=== PATIENT | female | born 1995 | race Caucasian/White ===

== ENCOUNTER 2020-09-23 11:33 | Outpatient (REF) | payer OTHER, SELFPAY ==
[2020-09-23 11:55] LABS: IDNOW Serial# 55D5AD1C
[2020-09-23 11:56] LABS: COVID-19 Test Negative (Negative)
== END 2020-09-23 11:34 | disposition home or self-care (01) ==
LOC: HO.LAB 11:33
PROVIDERS: Visit Provider Internal Medicine
DX: Z20.828 Contact with and (suspected) exposure to other viral communicable diseases (principal)
CPT/HCPCS: 87635; C9803

== ENCOUNTER 2020-11-17 07:22 | Outpatient (REF) | payer OTHER, SELFPAY ==
[2020-11-17 07:57] LABS: COVID-19 Test Negative (Negative)
== END 2020-11-17 07:23 | disposition home or self-care (01) ==
LOC: HO.EMPCOV 07:22
PROVIDERS: Visit Provider Internal Medicine
DX: Z20.822 Contact with and (suspected) exposure to COVID-19 (principal)
CPT/HCPCS: 36415; 87635; C9803

== ENCOUNTER 2020-11-28 13:57 | Outpatient (REF) | payer OTHER, SELFPAY ==
[2020-11-28 14:15] LABS: COVID-19 Test Negative (Negative)
== END 2020-11-28 13:58 | disposition home or self-care (01) ==
LOC: HO.EMPCOV 13:57
PROVIDERS: Visit Provider Internal Medicine
DX: Z20.822 Contact with and (suspected) exposure to COVID-19 (principal)
CPT/HCPCS: 36415; 87635; C9803

== ENCOUNTER 2020-12-15 12:57 | Outpatient (REF) | payer OTHER, SELFPAY ==
[2020-12-15 13:16] LABS: COVID-19 Test Negative (Negative)
== END 2020-12-15 12:58 | disposition home or self-care (01) ==
LOC: HO.EMPCOV 12:57
PROVIDERS: Visit Provider Internal Medicine
DX: Z20.822 Contact with and (suspected) exposure to COVID-19 (principal)
CPT/HCPCS: 36415; 87635; C9803

== ENCOUNTER 2021-01-20 16:06 | Outpatient (REF) | payer OTHER, SELFPAY ==
[2021-01-20 17:04] LABS: Rheumatoid Factor < 15.0 IU/mL (<15.0)
[2021-01-21 09:21] LABS: Lyme Abs Screen <0.90 index
[2021-01-21 20:57] LABS: Anti Nuclear Antibody Screen NEGATIVE (NEGATIVE)
[2021-01-22 04:31] LABS: Cyclic Citrullinated Peptide <16 UNITS
[2021-01-22 13:16] LABS: SM/Ribonucleoprotein Ab <1.0 NEG AI (<1.0 NEG); Smith Protein <1.0 NEG AI (<1.0 NEG)
[2021-01-23 13:12] LABS: A. Phagocytophilum Ab IgG <1:64 (<1:64); A. Phagocytophilum Ab IgM <1:20 (<1:20); E. Chaffeensis Ab IgG <1:64 (<1:64); E. Chaffeensis Ab IgM <1:20 (<1:20)
[2021-01-27 06:26] LABS: Babesia IgG <1:64 titer (<1:64); Babesia IgM <1:20 titer (<1:20)
== END 2021-01-20 16:07 | disposition home or self-care (01) ==
LOC: HO.LAB 16:06
PROVIDERS: PCP Internal Medicine; Visit Provider Naturopath
DX: M25.541 Pain in joints of right hand (principal); M25.529 Pain in unspecified elbow; M25.519 Pain in unspecified shoulder; R53.83 Other fatigue
CPT/HCPCS: 36415; 86038; 86039; 86200; 86235; 86431; 86611; 86618; 86666; 86753

== ENCOUNTER 2021-02-13 09:25 | Outpatient (REF) | payer OTHER, SELFPAY ==
[2021-02-13 14:13] LABS: CT PCR NOT DETECTED (Not Detect.); NG PCR NOT DETECTED (Not Detect.)
[2021-02-14 15:15] LABS: BV Int Neg Control Negative (Negative); BV Int Pos Control Positive (Positive)
== END 2021-02-13 09:26 | disposition home or self-care (01) ==
LOC: HO.LAB 09:25
PROVIDERS: PCP Internal Medicine; Visit Provider Obstetrics & Gynecology
DX: Z12.4 Encounter for screening for malignant neoplasm of cervix (principal); N93.0 Postcoital and contact bleeding; Z11.3 Encounter for screening for infections with a predominantly sexual mode of transmission; Z88.1 Allergy status to other antibiotic agents
CPT/HCPCS: 87480; 87491; 87510; 87591; 87660; 88142

== ENCOUNTER 2021-03-26 16:00 | Outpatient (RCR) | payer OTHER, SELFPAY ==
--- NOTE | 2021-02-03 18:37 | MHC.PT.EP ---
[facility] [place] Office [place] Office [place] Office [address] Cori Velázquez [address] [phone] F: [phone] F: [phone] F: [phone] F: [phone] Physical Therapy Plan of Care Date of Evaluation: 02/03/21 Date of Surgery: N/A Diagnosis: B shoulder and elbow pain per script M25.511 pain in right shoulder Assessment: pt initially seemed as though they were experiencing RTC tendinitis; however, had no pain w/ resisted rotator cuff strengthening. Bursitis was also considered; however, pt does not presents w/ redness, warmth, or swelling of the affected joints. pt also does not present with significant stiffness of the shoulders or elbows with passive range. Bilateral nature of symptoms and isolated joint pain makes it unlikely to be cervical radiculopathy. pt presents to physical therapy with pain, decreased range of motion, decreased strength, and impaired postural awareness. pt is a good candidate for skilled PT due to age, potential remediation of impairments, typical disease/condition progression and prognosis, comorbidities, and motivation. pt would benefit from tailored strengthening and stretching exercise program, functional training, gait training, postural re-training, neuromuscular re-education, modalities as needed for pain, equipment safety demonstration. Frequency and Duration: The patient will be seen 2x/wk for 4 wks Short Term Goals: pt will be I w/ HEP to promote self-management of condition. pt will improve B shoulder flexion by 15 degrees to promote ease in reaching for objects on higher shelves. 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 pt will report <1/10 B shoulder pain w/ donning/doffing upper body clothing to promote pain-free return to ADLs. Treatment Plan: Modalities to reduce pain, spasms and effusion. Manual therapy to restore motion and function. Therapeutic exercise to improve strength and flexibility. Neuromuscular re-education for posture and balance. Therapeutic activities to return to functional activities of daily living. Electronically signed by: Francesca Acharya PT, DPT Please sign and return to therapist. Thank you for your referral.
--- NOTE | 2021-04-17 09:30 | MHC.PT.DC ---
[facility] [place] Office [place] Office [place] Office [address] Eduardo Velázquez [address] [phone] F: [phone] F: [phone] F: [phone] F: [phone] Physical Therapy Discharge Report Diagnosis: B shoulder and elbow pain per script M25.511 pain in right shoulder Date of Surgery: N/A Date of Evaluation: 02/03/21 Date of Discharge: 04/17/21 Treatments to Date: 12 Cancellations to Date: 1 No Shows to Date: 0 Discharge Status: Improved Function Independent with HEP Discharge Summary: pt reported fatigue and DOMS after last visit but no increase in pain. pt was able to progress to lower angle push-ups w/ no increased pain. pt able to progress to overhead lifting w/ no increase in pain. Will put pt on hold for 3 weeks. If pt has flare up of shoulder pain w/ return to gym program they will return to continue w/ PT at that time. Otherwise, pt's chart will be D/C'd in 3 weeks time. pt I w/ HEP. pt educated regarding importance of strengthening to promote muscle balance across joints. pt also educated on how to modify ex's at the gym including ensuring they are using proper posture or modifying resistance, reps, or range of motion. Electronically signed by: Francesca Acharya PT, DPT Please sign and return to therapist. Thank you for your referral.
== END 2021-04-17 09:31 | disposition other institution (70) ==
LOC: HO.PT 16:00
PROVIDERS: Visit Provider Internal Medicine
DX: M25.511 Pain in right shoulder (principal)
CPT/HCPCS: 97110; 97112; 97140; 97162

== ENCOUNTER 2021-04-14 09:12 | Outpatient (REF) | payer OTHER, SELFPAY ==
[2021-04-14 18:39] LABS: MANUAL DIFF FLAG NO
[2021-04-14 19:05] LABS: Basophils Absolute Auto 0.1 X10*3/uL (0.0-0.2); Basophils Percent Auto 1.4 % (0-2); Eosinophils Absolute Auto 0.2 X10*3/uL (0.0-0.4); Eosinophils Percent Auto 2.3 % (0-4); Hematocrit 38.1 % (37-47); Hemoglobin 12.4 g/dl (12.0-16.0); Imm Gran Abs Auto 0.02 X10*3/uL (0.00-0.03); Imm Gran Pct Auto 0.3 % (0.0-0.4); Lymphocytes Absolute Auto 2.2 X10*3/uL (1.2-4.9); Lymphocytes Percent Auto 28.1 % (20-40); Mean Corpuscular HGB Conc 32.5 g/dl (31.0-35.0); Mean Corpuscular Hemoglobin 30.9 pg (27.0-33.0); Mean Platelet Volume 11.9 fL (9.4-12.3); Monocytes Absolute Auto 0.6 X10*3/uL (0.1-1.2); Monocytes Percent Auto 8.1 % (2-11); Neutrophils Absolute Auto 4.7 X10*3/uL (2.0-8.3); Neutrophils Percent Auto 59.8 % (45-73); Platelet Count 180 X10*3/uL (160-400); Red Blood Count 4.01 X10*6/uL (4.20-5.50); Red Cell Distribution Width 12.3 % (11.0-16.0); White Blood Count 7.9 X10*3/uL (4.8-10.8)
[2021-04-14 19:06] LABS: Alanine Aminotransferase 21 U/L (0-31); Albumin Level 4.7 g/dL (3.5-5.0); Alkaline Phosphatase 135 U/L (39-117); Anion Gap 12 (12-20); Aspartate Amino Transferase 23 U/L (5-31); Bilirubin Total 0.4 mg/dL (0.0-1.0); Blood Urea Nitrogen 12 mg/dL (9-16); C Reactive Protein < 0.02 mg/dL (< or = 0.50); Calcium 9.3 mg/dL (8.4-10.2); Carbon Dioxide 27 mmol/L (22-29); Chloride 107 mmol/L (96-108); Estimated Glomerular Filt Rate > 60; Glucose Random 75 mg/dL (60-115); Potassium 3.8 mmol/L (3.3-5.1); Sodium 142 mmol/L (135-145); Total Protein 7.8 g/dL (6.5-8.0)
[2021-04-14 19:32] LABS: Erythrocyte Sedimentation Rate 7 MM/HR (0-20)
[2021-04-16 13:06] LABS: Antibody to SS-A Antigen <1.0 NEG AI (<1.0 NEG); Antibody to SS-B Antigen <1.0 NEG AI (<1.0 NEG)
== END 2021-04-14 09:13 | disposition home or self-care (01) ==
LOC: HO.LAB 09:12
PROVIDERS: PCP Internal Medicine; Visit Provider Student in an Organized Health Care Education/Training Program
DX: M25.50 Pain in unspecified joint (principal); I73.00 Raynaud's syndrome without gangrene; M77.11 Lateral epicondylitis, right elbow; M77.12 Lateral epicondylitis, left elbow
CPT/HCPCS: 36415; 80053; 85025; 85652; 86140; 86235

== ENCOUNTER → 2021-05-12 11:19 | Outpatient (BNVA) | payer OTHER, SELFPAY | PROVIDERS: PCP Internal Medicine; Visit Provider Student in an Organized Health Care Education/Training Program ==

== ENCOUNTER 2021-05-21 07:30 | Outpatient (RCR) | payer OTHER, SELFPAY ==
--- NOTE | 2021-04-30 11:56 | MHC.OT.OEV ---
[address] [phone] F: [phone] Occupational Therapy Evaluation Diagnosis: PAIN IN RIGHT ELBOW Date of Onset: 12/08/20 Attending Provider: Adrienne Cisneros Prescribed Treatment: EVAL AND TREAT History of Current Condition: REPORTS ABOUT A FOUR MONTH HISTORY OF LEFT > RIGHT ELBOW PAIN. PAIN GREATEST IN THE MORNING UPON WAKING AND IMPROVES THROUGHOUT THE DAY. BELIEVES ATTRIBUTED TO TURNING AND PULLING [facility] H[facility] DOORS AT WORK. 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 HOBBIES: EXERCING AT GYM 3-4X/WEEK LIFTING WEIGHT, ROCK CLIMBING Living Situation, Family and/or Social Support: LIVES ALONE, A CAT Current Level of Function and Occupation Self Care, Employment, Leisure: GRIPPING TASKS, GRASPING WATER BOTTLE, LIFTING WEIGHTS/ ROCK CLIMBING. UNABLE TO LIFT >5 POUNDS WITHOUT PAIN. Sleep: PAIN GREATEST IN MORNING, WAKES WHEN TURNING ON LEFT SIDE Driving: NO DIFFICULTIES Pain Assessment Pain Score: 1-7/10 Pain Scale Used: Numeric (0 - 10) Pain Location and Description: LEFT ELBOW MORE OFTEN THAN RIGHT ELBOW POSTERIOR ELBOW PAIN SHARP STABBING PAIN TO AN ACHY PAIN Aggravating Factors: LIFTING WEIGHTS, TURNING DOOR KNOBS, LIFTING HEAVY ITEMS Alleviating Factors: HAS TRIED ICE, CFB USE; HAS NOT USED MEDICATION RECENTLY PURCHASED VOLTAREN GEL, YET HAS NOT USED YET DUE TO CONCERNS WITH SIDE-EFFECTS Skin and Soft Tissue Assessment Skin and Soft Tissue: Swelling Comments: MILD POSTERIOR ELBOW EDEMA B/L; HYPERMOBILE AT JOINTS Sensory Assessment Temperature: Light Touch: WFL Proprioception: Vibration: Comments: Edema Assessment Upper Extremity: WNL Lower Extremity: Comments: CIRCUMFERENCE 20 CM PROXIMAL TO U.S. LEFT: 23.2 CM, RIGHT: 22.9 CM Dexterity Assessment Dexterity: WFL Comments: Special Tests Comments: AROM(PROM) Strength Shoulder Flexion: Extension: Abduction: Internal Rotation: External Rotation: Comments: RECENTLY CONCLUDED PT FOR B/L SHOULDER PAIN Flexion: Extension: Abduction: Internal Rotation: External Rotation: Comments: Elbow Flexion: L 0, R 0 Extension: L 150, R 145 Pronation: L 90, R 90 Supination: L 90, R 90 Comments: Flexion: Extension: Pronation: Supination: Comments: Wrist Flexion: L 85 Extension: Ulnar Deviation: Radial Deviation: Comments: HYPERMOBILE IN WRIST FLEX/EXT Flexion: Extension: Ulnar Deviation: Radial Deviation: Comments: Digits Index MCP: PIP: DIP: Long MCP: PIP: DIP: Ring MCP: PIP: DIP: Small MCP: PIP: DIP: Comments: Gross Grasp: L 34 POUNDS, R 42 POUNDS Lateral Pinch: L 8, R 9 Two-Point Pinch: L 7, LR 7 Three-Jaw Graham: L 9, R 10 Comments: DOES NOT REPORT INCREASED PAIN WITH GRIPPING DYNAMOMETER IN ELBOW EXTENSION Patient Education Primary Language: Gabonese 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 Patient demonstrates Patient verbalizes Barriers to Learning: None Readiness for Learning: Accepting Who was educated? Patient Comments: Plan of Care Assessment: CRISTY REPORTS ABOUT A FOUR MONTH HISTORY OF B/L ELBOW AND SHOULDER PAIN. Pt RECENTLY CONCLUDED ATTENDING PT FOR B/L SHOULDER PAIN AND IS BEING REFERRED TO OT FOR ELBOW PAIN. SHE RECENTLY PURCHASED B/L CFB WITH GOOD RELIEF. Pt IS REPORTING DIFFICULTIES WITH BEARING WEIGHT THROUGH ARMS, LIFTING WEIGHTS AND ROCK CLIMBING, WELL TURNING DOORS OR OPENING A TIGHT JAR. A 16% LIMITATION IS REPORTED PER THE QUICK DASH ASSESSMENT. CRISTY WOULD BENEFIT FROM ONGOING SKILLED OT TO ACHIEVE OPTIMAL FUNCTIONAL LEVEL AND IMPROVE QOL. STG Duration: 2 WEEK Short Term Goals: IND HEP IND HEAT/ ICE IND JOINT PROTECTION/ ACTIVITY MASSAGE REPORT <4/10 PAIN WITH LIGHT IADLs LTG Duration: 4 WEEKS Retirement Goals: COMPLETE 5 PUSH-UPS WITH REPORTS OF LOW PAIN QUICK DASH <8 % REPORT MINIMAL INTERRUPTION WITH SLEEPING WITH USING MODIFIED POSITIONS REPORT <2/10 PAIN WITH IADLs IND SELF TAPING TECHNIQUES (IE. KINESIOTAPE USE) Frequency and Duration: The patient will be seen 2X/WEEK FOR 5 WEEKS Treatment Plan: Therapeutic Exercise Therapeutic Activity Home Exercise Program Splinting Neuro Re-ed Patient Education Desensitization/Sensory Re-ed Edema Control ADL Training Ultrasound NMES Iontophoresis Paraffin Fluidotherapy MHP Cold Packs Joint Mobilization Soft Tissue Mobilization Kinesiotaping Electronically Signed By: RADHA LANDIN OTR/L Reviewed/agree with student documentation: Yes Therapist: Please sign and return to therapist, Thank you for your referral.
--- NOTE | 2021-06-18 10:17 | MHC.OT.DC ---
[address] [phone] F: [phone] Occupational Therapy Discharge Note Provider: Dr Cisneros Diagnosis: PAIN IN RIGHT ELBOW Date of Evaluation: 04/30/21 Date of Discharge: 06/18/21 Treatments to Date: 7 Discharge Status: Achieved Goals Improved Function Discharge Summary: Yakelin was seen in OT for triceps tendinopathy. She has done well and reported pain free able able to increase activity and initiate light exercises at the gym w/ minimal discomfort. Electronically Signed By: Ana Servin OTR/L Please Sign and return to therapist, thank you for your referral.
== END 2021-06-18 10:18 | disposition home or self-care (01) ==
LOC: HO.OT 07:30
PROVIDERS: Visit Provider Student in an Organized Health Care Education/Training Program
DX: M25.521 Pain in right elbow (principal)
CPT/HCPCS: 97033; 97035; 97110; 97140; 97166

== ENCOUNTER 2021-07-03 10:40 | Outpatient (REF) | payer OTHER, SELFPAY ==
[2021-07-04 11:02] LABS: BV Int Neg Control Negative (Negative); BV Int Pos Control Positive (Positive)
== END 2021-07-03 10:41 | disposition home or self-care (01) ==
LOC: HO.LAB 10:40
PROVIDERS: PCP Internal Medicine; Visit Provider Advanced Practice Midwife
DX: N89.8 Other specified noninflammatory disorders of vagina (principal)
CPT/HCPCS: 87480; 87510; 87660

== ENCOUNTER → 2021-09-15 14:50 | Outpatient (REF) | payer OTHER, SELFPAY ==
--- NOTE | 2021-09-15 14:53 | CA_ITS ---
Transthoracic Echocardiogram Patient (Last, First, Middle): Yakelin Solomon W Gender: Female Date of : 1995 Age: 26 Procedure Date: 09/15/2021 Procedure Type: Transthoracic Echocardiogram Location: OP Height: 160.02 cm Weight: 49.9 kg BSA: 1.50 m2 Heart Rate: bpm BP: 117 / 61 mmHg Sfdc Developer: DSBridget Referring MD: Vannesa Knight MD Symptoms: R01.1 - Cardiac murmur, unspecified Study Quality: Good ECG Rhythm: Sinus Conclusions: - The left ventricular systolic function is normal. The calculated ejection fraction is 65% by biplane method. - No obvious valvular pathology seen on this study. Findings Left Ventricle Normal left ventricular cavity size. There is normal left ventricular wall thickness. The left ventricular systolic function is normal. The calculated ejection fraction is 65% by biplane method. There is no evidence of regional wall motion abnormalities. Diastolic function is normal for age. LV peak GLS 21.6% (normal). Right Ventricle Normal right ventricular cavity size and systolic function. Atria Both atria are normal in size. Aortic Valve There is a normal trileaflet aortic valve. There is no aortic valve stenosis. There is no aortic valve regurgitation. Mitral Valve The mitral valve appears normal. There is no mitral valve regurgitation. There is no mitral valve stenosis. Pulmonic Valve The pulmonic valve was not well visualized. Tricuspid Valve Normal tricuspid valve structure. There is trace tricuspid valve regurgitation. The pulmonary artery systolic pressure is normal. Great Vessels The asc aorta is normal in size. Venous The inferior vena cava is normal in size and collapses greater than 50% with inspiration. Pericardium/Pleural There is no evidence of pericardial effusion. Prior Study Comparison No prior study available for comparison. Recommendations, Care & Conclusions No obvious valvular pathology seen on this study. Measurements M-Mode Liner Measurements Normals - Women/Men LVIDd: 4.09 3.9-5.3/4.2-5.9 cm LVIDd Index: 2.73 1.9-3.2 cm/m2 LVIDs: 2.86 2.0-3.8 cm LVPWd: 0.62 0.6-0.9/0.6-1.0 cm M-Mode Volumes LV EDV: 73.80 LV ESV: 31.10 2D Linear Measurements IVSd: 0.70 0.6-0.9/0.6-1.0 cm LVIDd: 4.08 3.9-5.3/4.2-5.9 cm LVIDd Index: 2.72 2.4-3.2/2.2-3.1 cm/m2 LVIDs: 2.96 2.0-3.6 cm LVPWd: 0.68 0.7-1.1 cm Ao Root: 2.30 2.1-3.5 cm LA Diam: 2.60 2.7-3.8/3.0-4.0 cm LAIDs Index: 1.73 1.5-2.3 cm/m2 LV Mass: 98.65 67-162/88-224 g LV Mass Index: 65.77 43-95/49-115 g/m2 LVOT Diam: 1.80 3.0+(-)1.3 cm 2D Systolic Function EF 4C: 65.50 >55% EF 2C: 63.80 >55% EF BiP: 64.70 >55% M-Mode Systolic Function FS: 30.10 27-47/25-43% LVEF: 57.90 >55% Mitral Valve MV Pk E: 1.02 MV PK A: 0.36 MV Decel Time: 118.00 E/A: 2.80 E'Lateral: 19.80 E'Medial: 13.10 E/E' Med: 7.80 E/E' Lat: 5.20 PHT: 34.00 MVA PHT: 6.47 Decel Ashley: 8.64 Aortic Valve AoV Pk Garret: 1.13 AoV Pk Grad: 5.00 LVOT LVOT Pk Garret: 1.01 LVOT Mn Garret: 0.70 LVOT VTI: 0.21 LVOT Pk Grad: 4.00 LVOT Mn Grad: 2.00 LVOT Diam: 1.80 LVOT Area: 2.54 Diastolic Function MV Pk E: 1.02 MV Pk A: 0.36 E/A: 2.80 E'Medial: 13.10 E/E' Med: 7.80 E' Laterial: 19.80 E/E' Lat: 5.20 Right Ventricle TAPSE (mm): 1.83 Tricuspid Valve TR Pk Garret: 2.06 TR Pk Grad: 17.00 RA Press: 3.00 Great Vessels Aorta Ao Root-2D: 2.30 2.0-3.7 cm Ao Asc: 2.10 2.1-3.4 cm Updated in Other Vendor System with Status of Final Sammy Vyas MD electronically signed on 09/17/2021 12:02:09 PM with status of Final
== END ==
LOC: HO.CARD 14:50
PROVIDERS: PCP Internal Medicine; Visit Provider Internal Medicine
DX: R01.1 Cardiac murmur, unspecified (principal)
CPT/HCPCS: 93306; 93356

== ENCOUNTER 2021-11-09 12:09 | Outpatient (REF) | payer OTHER, SELFPAY ==
[2021-11-09 13:24] LABS: Influenza A PCR NEGATIVE (Negative); Influenza B PCR NEGATIVE (Negative); Resp Syncy Virus RNA Qual PCR NEGATIVE (Negative); SARS COV2 PCR INHOUSE NEGATIVE (Negative)
== END 2021-11-09 12:10 | disposition home or self-care (01) ==
LOC: HO.LNP 12:09
PROVIDERS: Visit Provider Nurse Practitioner Family
DX: Z20.822 Contact with and (suspected) exposure to COVID-19 (principal); R52 Pain, unspecified
CPT/HCPCS: 0241U

== ENCOUNTER 2022-01-26 14:28 | Outpatient (REF) | payer OTHER, SELFPAY ==
[2022-01-26 17:08] LABS: Alanine Aminotransferase 42 U/L (0-31); Albumin Level 4.8 g/dL (3.5-5.0); Alkaline Phosphatase 138 U/L (39-117); Aspartate Amino Transferase 29 U/L (5-31); Bilirubin Direct < 0.2 mg/dL (0.0-0.5); Bilirubin Total 0.3 mg/dL (0.0-1.0)
== END 2022-01-26 14:29 | disposition home or self-care (01) ==
LOC: HO.HMGCLDS 14:28
PROVIDERS: PCP Internal Medicine; Visit Provider Internal Medicine
DX: R79.89 Other specified abnormal findings of blood chemistry (principal)
CPT/HCPCS: 36415; 80076

== ENCOUNTER → 2022-02-02 14:27 | Outpatient (BNVA) | payer OTHER, SELFPAY | PROVIDERS: PCP Internal Medicine; Visit Provider Physician Assistant | DX: Z79.899 Other long term (current) drug therapy (principal) ==

== ENCOUNTER 2022-02-03 15:41 | Outpatient (REF) | payer OTHER, SELFPAY ==
[2022-02-03 16:40] LABS: C Reactive Protein < 0.02 mg/dL (< or = 0.50); Iron 79 mcg/dL (30-160); Percent Iron Saturation 28 % (15-50); Total Iron Binding Capacity 282 mcg/dL (228-428); Unsaturated Iron Binding 203 ug/dL
[2022-02-03 16:51] LABS: Gamma Glutamyl Transpeptidase 20 U/L (7-33)
[2022-02-03 17:01] LABS: Ferritin 94 ng/mL (10-122); Thyroid Stimulating Hormone 1.15 uIU/mL (0.32-4.0)
[2022-02-03 18:51] LABS: Erythrocyte Sedimentation Rate 3 MM/HR (0-20)
[2022-02-04 05:52] LABS: HBc Num1 0.27 S/CO (0.00-0.79); HBsAGNum1 0.22 S/CO (0.00-0.99); Hepatitis B Core Antibody Nonreactive (Nonreactive); Hepatitis B Surface Antigen Negative (Negative); ~Hepatitis B Surface Antibody REACTIVE (Nonreactive)
[2022-02-04 05:54] LABS: ~HepC Num1 0.16 S/CO (0.00-0.79); ~Hepatitis C Antibody Nonreactive (Nonreactive)
[2022-02-05 08:33] LABS: Hepatitis A Antibody IgM 0.22 Index (0-0.79); ~Hepatitis A Antibody IgM Nonreactive (Nonreactive)
[2022-02-06 08:42] LABS: Transglutaminase IgA <1.0 U/mL
[2022-02-09 15:26] LABS: Endomysial IgA Antibody Negative (Negative)
== END 2022-02-03 15:42 | disposition home or self-care (01) ==
LOC: HO.LAB 15:41
PROVIDERS: PCP Internal Medicine; Visit Provider Physician Assistant
DX: K59.09 Other constipation (principal); R19.7 Diarrhea, unspecified; R79.89 Other specified abnormal findings of blood chemistry; B94.8 Sequelae of other specified infectious and parasitic diseases; D64.9 Anemia, unspecified; D89.89 Other specified disorders involving the immune mechanism, not elsewhere classified
CPT/HCPCS: 36415; 82728; 82977; 83540; 84443; 85652; 86140; 86231; 86364; 86704; 86706; 86709; 86803; 87340

== ENCOUNTER 2022-03-16 07:48 | Outpatient (REF) | payer OTHER, SELFPAY ==
--- NOTE | ~2022-03-16 | US_ITS ---
EXAMINATION: US COMPLETE ABDOMEN WITH LIVER ELASTOGRAPHY CLINICAL INFORMATION: Elevated liver function tests. COMPARISON: None. TECHNIQUE: Real-time imaging of the abdominal viscera. Noninvasive ultrasound liver fibrosis assessment is performed using Noreen ElastPQ point quantification shear wave elastography (2D-SWE) with a C5-2 MHz transducer. Multiple elastography samples are obtained. FINDINGS: PANCREAS: Normal. The visualized pancreatic head and body are normal in appearance. The remainder of the pancreas is obscured from visualization by the overlying bowel gas. ABDOMINAL AORTA: The proximal, middle, and distal aortic segments are normal in caliber. INFERIOR VENA CAVA: Visualized portions are normal. LIVER: Normal. The liver demonstrates normal size, contour and echogenicity. No focal lesion or intrahepatic biliary duct dilatation. The right lobe measures 16.0 cm in length. The left lobe measures 10.3 cm in length. Portal flow is towards the liver (hepatopetal). Shear wave liver elastography median stiffness is 1.57 m/s (reference: normal median stiffness is 1.3 m/s or less). IQR/median stiffness to assess sampling precision is 0.09 (reference: good quality data set is IQR/median stiffness of 0.15 or less). GALLBLADDER: Normal. The gallbladder is physiologically distended without evidence of stones, sludge, polyps, wall thickening or pericholecystic fluid. COMMON BILE DUCT: Normal in caliber measuring 0.2 cm in diameter. RIGHT KIDNEY: Normal. No hydronephrosis. No renal calculi or focal parenchymal lesions. The kidney measures 10.2 cm in maximum dimension. LEFT KIDNEY: Normal. No hydronephrosis. No renal calculi or focal parenchymal lesions. The kidney measures 9.1 cm in maximum dimension. SPLEEN: Normal. The spleen measures 13.1 cm in maximum dimension. FREE FLUID: None. US/US abdomen comp w elastography IMPRESSION: 1. There is borderline splenomegaly. 2. Liver elastography: In the absence of other known clinical signs, measurements rule out compensated advanced chronic liver disease. If there are known clinical signs, further testing may be needed for confirmation. REFERENCE: Society of Radiologists in Ultrasound Liver Stiffness Thresholds (2020): LIVER STIFFNESS THRESHOLDS: *Liver Stiffness equal or less than 1.3 m/s: High probability of being normal. *Liver Stiffness less than 1.7 m/s: In the absence of other known clinical signs, rules out compensated advanced chronic liver disease. *Liver Stiffness 1.7-2.1 m/s: Suggestive of compensated advanced chronic liver disease but need further test for confirmation. *Liver Stiffness over 2.1 m/s: Rules in compensated advanced chronic liver disease. *Liver Stiffness over 2.4 m/s: Suggestive of clinically significant portal hypertension. QUALITY OF DATA SET: *IQR/Median value equal or less than 0.15 implies a quality data set. *IQR/Median value over 0.15 implies a poor quality data set. SIGNIFICANT CHANGE FROM PRIOR EXAM: Significant change if liver stiffness measurement is 10% or greater from prior exam. OTHER CONSIDERATIONS: The stage of liver fibrosis may be overestimated in the setting of acute hepatitis, liver inflammation, elevated liver function tests, hepatic vascular congestion, obstructive cholestasis, non-fasting state, and infiltrative diseases such as amyloidosis and lymphoma. In some patients with NAFLD, the liver stiffness thresholds for compensated advanced chronic liver disease may be lower. In causes other than viral hepatitis and NAFLD, liver stiffness thresholds are not well established.
== END 2022-03-16 07:49 | disposition home or self-care (01) ==
LOC: HO.US 07:48
PROVIDERS: Visit Provider Physician Assistant
DX: R79.89 Other specified abnormal findings of blood chemistry (principal)
CPT/HCPCS: 76705; 76981

== ENCOUNTER → 2022-04-06 07:39 | Outpatient (BNVA) | payer OTHER, SELFPAY | PROVIDERS: PCP Internal Medicine; Referring Provider Internal Medicine; Visit Provider Physician Assistant | DX: R79.89 Other specified abnormal findings of blood chemistry (principal) ==

== ENCOUNTER 2022-05-24 15:31 | Outpatient (REF) | payer OTHER, SELFPAY ==
[2022-05-24 16:26] LABS: Alanine Aminotransferase 32 U/L (0-31); Albumin Level 4.7 g/dL (3.5-5.0); Alkaline Phosphatase 147 U/L (39-117); Aspartate Amino Transferase 25 U/L (5-31); Bilirubin Direct 0.2 mg/dL (0.0-0.5); Bilirubin Total 0.3 mg/dL (0.0-1.0); Total Protein 7.7 g/dL (6.5-8.0)
[2022-05-29 18:07] LABS: Vitamin C 0.6 mg/dL (0.3-2.7)
[2022-05-30 18:17] LABS: Vitamin A 35 mcg/dL (38-98)
== END 2022-05-24 15:32 | disposition home or self-care (01) ==
LOC: HO.LAB 15:31
PROVIDERS: PCP Internal Medicine; Visit Provider Physician Assistant
DX: R10.11 Right upper quadrant pain (principal); R79.89 Other specified abnormal findings of blood chemistry
CPT/HCPCS: 36415; 80076; 82180; 84590

== ENCOUNTER 2022-06-02 15:06 | Outpatient (REF) | payer OTHER, SELFPAY ==
[2022-06-02 16:09] LABS: Gamma Glutamyl Transpeptidase 19 U/L (7-33)
[2022-06-04 10:23] LABS: Immunoglobulin G Subclass 1 785 mg/dL (382-929); Immunoglobulin G Subclass 2 417 mg/dL (241-700); Immunoglobulin G Subclass 3 98 mg/dL (22-178); Immunoglobulin G Subclass 4 58.8 mg/dL (4-86); Immunoglobulin G Total 1427 mg/dL (600-1640)
[2022-06-04 14:25] LABS: Alpha 1 Anti-trypsin 158 mg/dL (83-199); Ceruloplasmin 21 mg/dL (18-53)
[2022-06-07 06:13] LABS: Soluble Liver Ag Autoantibody <20.1 U (0.0-20.0)
[2022-06-07 14:26] LABS: Mitochondrial Antibodies NEGATIVE (NEGATIVE)
[2022-06-08 11:37] LABS: Smooth Muscle Antibody <20 U (<20)
[2022-06-08 21:03] LABS: Alk.Phos Iso. Macrohepatic 0 % (<=0); Alk.Phos Isoenzymes Bone 53 % (28-66); Alk.Phos Isoenzymes Intest 29 % (1-24); Alk.Phos Isoenzymes Liver 18 % (25-69); Alk.Phos Isoenzymes Placental 0 % (<=0); Alk.Phos Isoenzymes Total 132 U/L (31-125)
[2022-06-09 06:22] LABS: Aldolase 3.9 U/L (<=8.1)
== END 2022-06-02 15:07 | disposition home or self-care (01) ==
LOC: HO.LAB 15:06
PROVIDERS: PCP Internal Medicine; Visit Provider Physician Assistant
DX: R74.01 Elevation of levels of liver transaminase levels (principal); R74.8 Abnormal levels of other serum enzymes; R79.89 Other specified abnormal findings of blood chemistry; Z83.49 Family history of other endocrine, nutritional and metabolic diseases
CPT/HCPCS: 36415; 81256; 82085; 82103; 82390; 82550; 82784; 82977; 83520; 84080; 86015; 86255; 86256

== ENCOUNTER 2022-07-05 08:29 | Outpatient (REF) | payer OTHER, SELFPAY ==
[2022-07-07 19:26] LABS: TS Negative Control Passed; TS Panel A 0; TS Panel B 0; TS Positive Control Passed; TSpotTB Negative (Negative)
== END 2022-07-05 08:30 | disposition home or self-care (01) ==
LOC: HO.HMGCLDS 08:29
PROVIDERS: PCP Internal Medicine; Visit Provider Internal Medicine
DX: Z11.1 Encounter for screening for respiratory tuberculosis (principal)
CPT/HCPCS: 36415; 86481

== ENCOUNTER 2022-09-03 15:19 | Outpatient (REF) | payer BC, SELFPAY ==
--- NOTE | ~2022-09-03 | CT_ITS ---
EXAMINATION: CT ENTEROGRAPHY ABDOMEN AND PELVIS WITH CONTRAST CLINICAL INFORMATION: Iron deficiency COMPARISON: Previous abdominal ultrasound March 2022 TECHNIQUE: Study performed with oral VoLumen (1350 mL) and 480 mL of water to distend the abdomen. The patient was injected with 85 mL Omnipaque 350 intravenous contrast which was administered without adverse effect. Coronal and sagittal reformatted images were obtained at the technologist's workstation. This CT examination was performed using dose optimization techniques as appropriate, variously including the following: *Automated exposure control *Adjustment of mA and/or kV according to patient size (this includes techniques or standardized protocols for targeted exams where dose is matched to indication/reason for exam; i.e. extremities or head) *Use of iterative reconstruction technique DLP: 290 mGy-cm FINDINGS: GASTROINTESTINAL FINDINGS: Stomach: Well-distended and normal in appearance. Small intestine: Satisfactorily distended and normal in appearance. Large intestine: Well-distended and normal in appearance. No perirectal changes demonstrated. The appendix is normal. Additional findings: No abnormal enhancement of the vasa recta or significant mesenteric or retroperitoneal lymphadenopathy is seen. No abdominal abscess or fistulous tract demonstrated. ABDOMINAL AND PELVIC CT FINDINGS: Liver, gallbladder, biliary tract: Normal Pancreas: Normal Spleen: Normal Adrenal glands and kidneys: Normal Ureters and bladder: Normal Lymphovascular structures: Normal Bones: No suspicious bone lesion. Small sclerotic density in the right iliac bone measuring 5 mm. This may represent a bone island. Small focus of increased sclerosis in the posterior lateral subchondral left femoral head. Lung bases: Normal. CT/CT enterography IMPRESSION: Unremarkable CT enterography exam.
[2022-09-03] MEDS: iohexoL 350 MG/ML 100 ML INFUS..BTL IV (17:12)
[2022-09-03] MEDS: Sorbitol/Mannit/Xanth Imaging 500 ML LIQUID 1500 ML PO (17:13)
== END 2022-09-03 15:20 | disposition home or self-care (01) ==
LOC: HO.US 15:19
PROVIDERS: Visit Provider Physician Assistant
DX: E61.1 Iron deficiency (principal); R14.0 Abdominal distension (gaseous); R74.8 Abnormal levels of other serum enzymes; Z83.49 Family history of other endocrine, nutritional and metabolic diseases
CPT/HCPCS: 74177; Q9967

== ENCOUNTER 2022-12-16 11:13 | Outpatient (REF) | payer BC, SELFPAY ==
[2022-12-16 12:32] LABS: Influenza A PCR NEGATIVE (Negative); Influenza B PCR NEGATIVE (Negative); Resp Syncy Virus RNA Qual PCR NEGATIVE (Negative); SARS COV2 PCR INHOUSE NEGATIVE (Negative)
== END 2022-12-16 11:14 | disposition home or self-care (01) ==
LOC: HO.LNP 11:13
PROVIDERS: Visit Provider Internal Medicine
DX: Z20.822 Contact with and (suspected) exposure to COVID-19 (principal); R09.89 Other specified symptoms and signs involving the circulatory and respiratory systems
CPT/HCPCS: 0241U

== ENCOUNTER → 2023-01-10 15:55 | Outpatient (BNVA) | payer BC, SELFPAY | PROVIDERS: PCP Internal Medicine; Visit Provider Internal Medicine Gastroenterology | DX: Z13.89 Encounter for screening for other disorder (principal) ==

== ENCOUNTER 2023-01-14 14:59 | Outpatient (REF) | payer BC, SELFPAY ==
[2023-01-14 16:22] LABS: Alanine Aminotransferase 25 U/L (0-31); Albumin Level 4.8 g/dL (3.5-5.0); Alkaline Phosphatase 128 U/L (39-117); Anion Gap 11 (12-20); Aspartate Amino Transferase 27 U/L (5-31); Bilirubin Total 0.5 mg/dL (0.0-1.0); Blood Urea Nitrogen 11 mg/dL (9-16); Calcium 9.1 mg/dL (8.4-10.2); Carbon Dioxide 28 mmol/L (22-29); Chloride 106 mmol/L (96-108); Estimated Glomerular Filt Rate > 60; Glucose Random 95 mg/dL (60-115); Sodium 141 mmol/L (135-145)
[2023-01-14 16:41] LABS: Erythrocyte Sedimentation Rate 7 MM/HR (0-20)
[2023-01-17 14:24] LABS: Immunoglobulin G Subclass 1 840 mg/dL (382-929); Immunoglobulin G Subclass 2 425 mg/dL (241-700); Immunoglobulin G Subclass 3 97 mg/dL (22-178); Immunoglobulin G Subclass 4 60.6 mg/dL (4-86); Immunoglobulin G Total 1611 mg/dL (600-1640)
[2023-01-17 22:24] LABS: IgA 135 mg/dL (47-310); IgG 1677 mg/dL (600-1640); IgM 160 mg/dL (50-300)
[2023-01-19 22:38] LABS: Vitamin A 43 mcg/dL (38-98)
[2023-01-21 17:58] LABS: Histamine Plasma <1.5 ng/mL (< OR = 1.8)
== END 2023-01-14 15:00 | disposition home or self-care (01) ==
LOC: HO.LAB 14:59
PROVIDERS: PCP Internal Medicine; Visit Provider Internal Medicine Gastroenterology
DX: K75.81 Nonalcoholic steatohepatitis (NASH) (principal); R11.0 Nausea; R19.7 Diarrhea, unspecified; R74.8 Abnormal levels of other serum enzymes; R79.89 Other specified abnormal findings of blood chemistry; D89.89 Other specified disorders involving the immune mechanism, not elsewhere classified; B94.8 Sequelae of other specified infectious and parasitic diseases; E46 Unspecified protein-calorie malnutrition
CPT/HCPCS: 36415; 80053; 82085; 82550; 82784; 83088; 83520; 84590; 85652

== ENCOUNTER 2023-01-15 11:28 | Outpatient (REF) | payer BC, SELFPAY ==
[2023-01-15 12:46] LABS: CDiff Gene PCR NEGATIVE (Negative)
[2023-01-15 14:05] LABS: Adenovirus F 40/41 Not Detected (Not Detect.); Astrovirus Not Detected (Not Detect.); Campylobacter Not Detected (Not Detect.); Cryptosporidium Not Detected (Not Detect.); Cyclospora cayetanensis Not Detected (Not Detect.); E. coli EAEC Not Detected (Not Detect.); E. coli EPEC Not Detected (Not Detect.); E. coli ETEC Not Detected (Not Detect.); E. coli STEC Not Detected (Not Detect.); Entamoeba histolytica Not Detected (Not Detect.); Giardia lamblia Not Detected (Not Detect.); Norovirus GI/GII Not Detected (Not Detect.); Plesiomonas shigelloides Not Detected (Not Detect.); Rotavirus A Not Detected (Not Detect.); Salmonella Not Detected (Not Detect.); Sapovirus Not Detected (Not Detect.); Shigella sp./EIEC Not Detected (Not Detect.); Vibrio Not Detected (Not Detect.); Vibrio Cholerae Not Detected (Not Detect.); Yersinia enterocolitica Not Detected (Not Detect.)
[2023-01-20 05:53] LABS: Fecal Fat Qualitative Normal (Normal)
[2023-01-22 14:58] LABS: Lactoferrin, Fecal, Quant. <6.25 mcg/mL (<7.25)
[2023-02-08 02:24] LABS: Pancreatic Elastase-1 422 mcg/g
== END 2023-01-15 11:29 | disposition home or self-care (01) ==
LOC: HO.LNP 11:28
PROVIDERS: Visit Provider Internal Medicine Gastroenterology
DX: B94.8 Sequelae of other specified infectious and parasitic diseases (principal); D89.89 Other specified disorders involving the immune mechanism, not elsewhere classified; R11.0 Nausea; R74.8 Abnormal levels of other serum enzymes; R79.89 Other specified abnormal findings of blood chemistry; R19.7 Diarrhea, unspecified; K51.50 Left sided colitis without complications; E46 Unspecified protein-calorie malnutrition
CPT/HCPCS: 82656; 82705; 83631; 87493; 87507

== ENCOUNTER 2023-03-15 07:59 | Day surgery (SDC) | payer BC, SELFPAY ==
--- NOTE | 2023-03-14 12:20 | HO.ANESPROP2 ---
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) Bilateral shoulder pain (Acute) Bilateral elbow joint pain (Acute) Encounter for general adult medical examination with abnormal findings (Acute) Polyarthralgia (Acute) Raynauds disease (Acute) Lateral epicondylitis of both elbows (Acute) Rheumatism (Acute) Cardiac murmur (Acute) LFT elevation (Acute) Family history of hemochromatosis (Acute) Bloating (Acute) Encounter for annual routine gynecological examination (Acute) Elevated alkaline phosphatase level (Acute) Nausea (Acute) Acute lower respiratory tract infection (Acute) Upper respiratory tract infection (Acute) Malnutrition (Acute) Encounter for general adult medical examination without abnormal findings (Acute) Past Medical History Medical History (Updated 03/10/23 @ 14:47 by Gabriela Yanez RN) Murmur Raynauds disease Family History Family History Other Mental health disorder Substance use disorder Surgical History Surgical History Hx of endoscopy Hx of wisdom tooth extraction Social History Social History Housing: Apartment Alcohol intake: never Patient Tobacco Use Status: Never used Tobacco e-Cigarette/Vaping Use: Never Used Current occupational status: employed 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[place] Sexual orientation: Lesbian/Pete/Homosexual Gender identity: Female Cognitive needs: No Hearing needs: No Vision needs: Yes Meds Allergies Allergy/AdvReac Type Severity Reaction Status Date / Time amoxicillin [AMOXICILLIN] Allergy Intermediate RASH, hives Verified 03/10/23 14:53 Iodinated Contrast Media Allergy Intermediate Hives, Verified 03/15/23 08:19 [Contrast Dye] itching Home Medications Medication Instructions Recorded Confirmed Last Taken Type ascorbic acid (vitamin C) 1,000 mg 2 g PO Q8H 01/21/21 03/15/23 Unknown History tablet famotidine 20 mg tablet (Pepcid) 20 mg PO DAILY PRN Acid Reflux 01/21/21 03/15/23 Unknown History loratadine 10 mg tablet (Claritin) 10 mg PO DAILY 01/21/21 03/15/23 Unknown History magnesium oxide 500 mg capsule 500 mg PO DAILY 01/21/21 03/15/23 Unknown History zinc sulfate 50 mg zinc (220 mg) 50 mg PO DAILY 01/21/21 03/15/23 Unknown History capsule (Orazinc) cyanocobalamin (vitamin B-12) 500 500 mcg PO DAILY 02/13/21 03/15/23 Unknown History mcg tablet (B-12 DOTS) lactobacillus combination no.8 3 3,000 mmu cells PO DAILY 04/14/21 03/15/23 Unknown History billion cell capsule (Adult Probiotic) fluocinolone 0.01 % scalp oil and 1 ea topical NEEDED PRN Itching 03/15/23 03/15/23 Unknown History shower cap Exam Exam Date and Time: March 14, 2023 1220 Pertinent Lab Results Pertinent Lab Results: Laboratory Tests 04/14/21 01/14/23 17:35 15:34 WBC 7.9 Hgb 12.4 Hct 38.1 Plt Count 180 Sodium 141 Potassium 4.0 Chloride 106 Carbon Dioxide 28 BUN 11 Creatinine 0.86 Narrative Narrative: EKG 12/2022 NSR @ 76 ECHO 2020 Conclusions: - The left ventricular systolic function is normal.? The ? calculated ejection fraction is 65% by biplane method. ? - No obvious valvular pathology seen on this study.? ? Assessment and Plan Assessment Anesthesia Assessment: Chart Reviewed Documented by User: Jayden Suarez MD 03/15/23 10:26 [facility] Past Medical History Medical History (Updated 03/10/23 @ 14:47 by Gabriela Yanez RN) Murmur Raynauds disease Family History Family History Other Mental health disorder Substance use disorder Family history of problems with anesthesia: No Surgical History Surgical History Hx of endoscopy Hx of wisdom tooth extraction History of Problems with Anesthesia: No Social History Social History Housing: Apartment Alcohol intake: never Patient Tobacco Use Status: Never used Tobacco e-Cigarette/Vaping Use: Never Used Current occupational status: employed 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[place] Sexual orientation: Lesbian/Pete/Homosexual Gender identity: Female Cognitive needs: No Hearing needs: No Vision needs: Yes Meds Allergies Allergy/AdvReac Type Severity Reaction Status Date / Time amoxicillin [AMOXICILLIN] Allergy Intermediate RASH, hives Verified 03/10/23 14:53 Iodinated Contrast Media Allergy Intermediate Hives, Verified 03/15/23 08:19 [Contrast Dye] itching Home Medications Medication Instructions Recorded Confirmed Last Taken Type ascorbic acid (vitamin C) 1,000 mg 2 g PO Q8H 01/21/21 03/15/23 Unknown History tablet famotidine 20 mg tablet (Pepcid) 20 mg PO DAILY PRN Acid Reflux 01/21/21 03/15/23 Unknown History loratadine 10 mg tablet (Claritin) 10 mg PO DAILY 01/21/21 03/15/23 Unknown History magnesium oxide 500 mg capsule 500 mg PO DAILY 01/21/21 03/15/23 Unknown History zinc sulfate 50 mg zinc (220 mg) 50 mg PO DAILY 01/21/21 03/15/23 Unknown History capsule (Orazinc) cyanocobalamin (vitamin B-12) 500 500 mcg PO DAILY 02/13/21 03/15/23 Unknown History mcg tablet (B-12 DOTS) lactobacillus combination no.8 3 3,000 mmu cells PO DAILY 04/14/21 03/15/23 Unknown History billion cell capsule (Adult Probiotic) fluocinolone 0.01 % scalp oil and 1 ea topical NEEDED PRN Itching 03/15/23 03/15/23 Unknown History shower cap Exam Airway Mallampati Class: II TM Dist: >3cm Neck ROM: Full Loose/Missing/Broken Teeth: No Assessment and Plan Assessment Anesthesia Assessment: Anesthesia Plan Discussed Final Anesthetic Review Family History of Problems with Anesthesia: No History of Problems with Anesthesia: No NPO: Yes ASA Class: II Final Preanesthetic Review: No Changes in Pt Med Stat, Meds/Allgs Chart Reviewed, Consent Obtained/Reviewed and Anes Risks/Benef Reviewed Patient Risk: Low Procedure Risk: Low Anesthetic Plan Anesthetic Plan: MAC: Disposition: Standard PACU
[2023-03-15 08:21] VITALS: BMI 19.1
[2023-03-15 08:27] LABS: UPreg QC Valid YES; Urine Pregnancy NEGATIVE (NEGATIVE)
[2023-03-15 08:33] VITALS: BP 119/80; PULSE 82; RESP 16; TEMP 36.9; O2SAT 100
[2023-03-15] MEDS: Lactated Ringers 1,000 ML 100 ML IVCONT (08:47)
--- NOTE | 2023-03-15 09:24 | MHC.SHP ---
Pre-Procedural Eval Section A Date of Service: 03/15/23 Section B Chief Complaint: Nausea,Abnormal serum enzyme level, unspecified Details of Present Illness: fh of hemochromatosis Relevant Family History (Specify if Yes): Yes Relevant Social History: None Present Medications: see Short Stay Collaborative assessment Medical History: Significant History (PANDAS ) History of Previous Operations: Relevant previous surgery/procedure and date(s) (Hx of endoscopy Hx of wisdom tooth extraction) Allergies: Allergies Allergy/AdvReac Type Severity Reaction Status Date / Time amoxicillin [AMOXICILLIN] Allergy Intermediate RASH, hives Verified 03/10/23 14:53 Iodinated Contrast Media Allergy Intermediate Hives, Verified 03/15/23 08:19 [Contrast Dye] itching Review of Systems Sugical H&P ROS: Negative: Constitution, Cardiovascular, Respiratory, Neurological, Psychiatric, Hem-Onc, Allergic/Immunologic, Gastrointestinal, Genitourinary, Musculoskeletal, Integumentary, Endocrine and Eyes/Ears/Nose/Throat Exam Surgical H&P Exam: Normal: HEENT, Normal: Heart, Normal: Lungs, Normal: Extremities, Normal: Abdomen, Normal: Skin and Normal: Neurological Plan Diagnosis/Plan: Unchanged I have reviewed the history and physical and performed a pertinent physical examination on my patient. No changes have occurred unless specified. Time Spent With Patient Time: Total time managing care of this patient today ____ minutes.
--- NOTE | 2023-03-15 09:31 | W.PM.OPN ---
Operative Note Operative Note Date of Service: 03/15/23 Narrative: Procedure Description: EGD Indication: nausea, elevated small bowel origin alk phos Anesthesia: MAC FLEXIBLE TRANSORAL UPPER GASTROINTESTINAL ENDOSCOPY and push enteroscopy UPPER ENDOSCOPY Consent: Indications for the procedure and potential complications of bleeding, perforation, reaction to medications and missed diagnosis were discussed with the patient and informed consent was obtained. Instrument: Olympus GIF H 190 J mid size upper endoscope Monitoring: Vital signs and clinical assessment, continuous EKG monitoring, Pulse oximetry, Carbon Dioxide monitoring and blood pressure monitoring were done throughout the procedure. Procedure: The patient was placed in the left lateral decubitis position and pre-procedure medications were administered and a bite block was placed. The endoscope was inserted into the mouth and advanced under direct vision to the third part of duodenum. A careful inspection was made as the upper endoscope was withdrawn including a retroflexed examination of the proximal stomach; Findings and interventions are described below. Findings: Larynx:normal Esophagus: GE junction at 40 cm, diaphragm hiatus at 40 cm, bogginess and erythema at GEJ with schatzki ring, bx taken from GEJ and distal esophagus Stomach: Patchy gastric erythema. Biopsies were obtained. Grade 2 flap valve on retroflexed examination of the cardia. Duodenum: Normal bulb and descending duodenum, bx taken The pediatric colonoscope was then inserted with a distal attachment and the proximal jejunum was reached, more biopsies were taken, it looked grossly normal, but mucosa bled easily. Intervention: Biopsies as noted above Impression/Findings: gastritis schatzki ring esophagitis PLAN: consider PPI instead of H2 mars if ongoing issues then capsule endoscopy
[2023-03-15 10:18] VITALS: BP 112/63; PULSE 82; RESP 14; TEMP 36.2; O2SAT 97
[2023-03-15 10:33] VITALS: BP 121/71; PULSE 82; RESP 19; TEMP 36.2; O2SAT 99
== END 2023-03-15 11:46 | disposition home or self-care (01) ==
PROVIDERS: Nurse Practitioner; PCP Internal Medicine; Visit Provider Internal Medicine Gastroenterology
PROC: 0DJ08ZZ Inspection of Upper Intestinal Tract, Via Natural or Artificial Opening Endoscopic (ICD-10-PCS; CPT 43235; principal; 2023-03-15 09:30)
DX: K22.2 Esophageal obstruction (principal); K29.50 Unspecified chronic gastritis without bleeding; K20.90 Esophagitis, unspecified without bleeding; R74.9 Abnormal serum enzyme level, unspecified; Z83.2 Family history of diseases of the blood and blood-forming organs and certain disorders involving the immune mechanism; Z88.1 Allergy status to other antibiotic agents; Z91.041 Radiographic dye allergy status
CPT/HCPCS: 44361; 81025; 88305; 88342

== ENCOUNTER 2023-05-16 15:19 | Outpatient (AMB) | payer BC, SELFPAY ==
--- NOTE | 2023-05-16 15:20 | MHC.OFFVIS ---
Intake Intake Visit Reasons: follow up after procedure Intake Note: Yakelin presents as a video call to go over results to egd. CC: no concerns. Allergies amoxicillin [AMOXICILLIN] Allergy (Intermediate, Verified 05/16/23 15:20) RASH, hives Iodinated Contrast Media [Contrast Dye] Allergy (Intermediate, Verified 05/16/23 15:20) Hives, itching HPI follow up after procedure HPI Details 28 yr old f called for f/u RECAP: Initially saw [facility] referred with elevated liver enzymes She had upper endoscopy 2015 and 2017- [facility]- all normal- except mild gastrirtis-per patient report-reliable report She was c/o nausea easily-bloating- never has eaten much at one time- Has loose stools- has anxiety seems to coincide-however not always Mat GM- hemochromatosis ?? She had EGD 03/29 DX: gastritis schatzki ring esophagitis LABS: neg celiac neg A1At AMA neg hep viral serologies neg Alk phos elevation, isoenzyme, mostly intestine origin IMAGING: US liver-- borderline spleen CTe--no inflammation INTERIM: She has been taking omeprazole 20 mg for 4 weeks and has helped her nausea a lot she feels more hungry she denies diarrhea no abdominal pain EXAM: GENERAL: The patient is well developed and nontoxic. A?P; 1/ Alk phos elevation, mostly intestinal origin, why she has this is unclear as she had nml CTe 2/ Reflux, main sx better with PPI PLAN: 1/ cont with PPI 2/ recheck alk phos in 4 months at next visit 3/ disucssed VCE to eval small bowel, but wants to hold off as she is doing fine right now [facility] Medical History Murmur Raynauds disease Surgical History Hx of endoscopy Hx of wisdom tooth extraction Family History Other Mental health disorder Substance use disorder Social History Housing: Apartment Alcohol intake: never Patient Tobacco Use Status: Never used Tobacco e-Cigarette/Vaping Use: Never Used Current occupational status: employed 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[place] [place] Sexual orientation: Lesbian/Pete/Homosexual Gender identity: Female Cognitive needs: No Hearing needs: No Vision needs: Yes Female Reproductive History Menstrual Age of Menarche: 14 Assessment & Plan Assessment & Plan (1) Elevated alkaline phosphatase level: Code(s): R74.8 - Abnormal levels of other serum enzymes (2) GERD (gastroesophageal reflux disease): Code(s): K21.9 - Gastro-esophageal reflux disease without esophagitis Medications: New omeprazole 20 mg PO DAILY 90 caps 1RF Telehealth Telehealth Location of provider rendering services: practice address Location of patient: address on file Patient Identification confirmed using: Name, : Yes Telehealth method: video Patient verbally consented to treatment: Yes Patient verbally consented to billing insurance company: Yes Patient informed of any privacy concerns related to visit: Yes Minutes spent on Phone/Video with Pt.: 10 Coding Level of Care Code Tele Est Pt Level 3 (15139) Diagnoses Elevated alkaline phosphatase level R74.8 GERD (gastroesophageal reflux disease) K21.9
== END 2023-05-16 16:33 | disposition home or self-care (01) ==
LOC: HO.HGI 15:19
PROVIDERS: PCP Internal Medicine; Visit Provider Internal Medicine Gastroenterology
DX: R74.8 Abnormal levels of other serum enzymes (principal); K21.9 Gastro-esophageal reflux disease without esophagitis
CPT/HCPCS: 99213

== ENCOUNTER → 2023-05-16 15:19 | Outpatient (BNVA) | payer BC, SELFPAY | PROVIDERS: PCP Internal Medicine; Visit Provider Internal Medicine Gastroenterology ==

== ENCOUNTER 2023-10-10 14:31 | Outpatient (AMB) | payer BC, SELFPAY ==
--- NOTE | 2023-10-10 14:33 | MHC.OFFVIS ---
Intake Intake Visit Reasons: 4 month follow up Intake Note: Yakelin presents as a telehealth today for a 4 month follow up. CC: Loose stools frequently, nausea on and off and nothing has really changed for her at this time. Allergies amoxicillin [AMOXICILLIN] Allergy (Intermediate, Verified 05/16/23 15:20) RASH, hives Iodinated Contrast Media [Contrast Dye] Allergy (Intermediate, Verified 05/16/23 15:20) Hives, itching HPI 4 month follow up HPI Details 28 yr old f being called for f/u RECAP: Initially saw [facility] [place] [facility] referred with elevated liver enzymes She had upper endoscopy 2015 and 2017- [facility]- all normal- except mild gastrirtis-per patient report-reliable report She was c/o nausea easily-bloating- never has eaten much at one time- Has loose stools- has anxiety seems to coincide-however not always Mat GM- hemochromatosis ?? She had EGD 03/29 DX: gastritis schatzki ring esophagitis LABS: neg celiac neg A1At AMA neg hep viral serologies neg Alk phos elevation, isoenzyme, mostly intestine origin IMAGING: US liver-- borderline spleen CTe--no inflammation INTERIM: she has some mild resumption of GI sx with bloating and nausea but not as bad as before having more loose stools few times a day taking omeprazole once daily, no issues with heartburn occ gas cramping EXAM: GENERAL: The patient is well developed and nontoxic. A?P; 1/ Alk phos elevation, mostly intestinal origin, why she has this is unclear as she had nml CTe 2/ Reflux, main sx better with PPI 3/ abn bowel habits, and relapse of nausea PLAN: 1/ cont with PPI 2/ recheck alk phos and CRP, stool panel 3/ disucssed VCE to eval small bowel, would like to do it PFSH Medical History Murmur Raynauds disease Surgical History Hx of endoscopy Hx of wisdom tooth extraction Family History Other Mental health disorder Substance use disorder Social History (Reviewed 10/10/23 @ 14:34 by EDUARDO Goldstein Housing: Apartment Alcohol intake: never Patient Tobacco Use Status: Never used Tobacco e-Cigarette/Vaping Use: Never Used Current occupational status: employed 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[employer] [place] Sexual orientation: Lesbian/Pete/Homosexual Gender identity: Female Cognitive needs: No Hearing needs: No Vision needs: Yes Female Reproductive History Menstrual Age of Menarche: 14 Assessment & Plan Assessment & Plan (1) Raynauds disease: Code(s): I73.00 - Raynaud's syndrome without gangrene Plan: PLAN: 1/ cont with PPI 2/ recheck alk phos and CRP, stool panel 3/ disucssed VCE to eval small bowel, would like to do it (2) LFT elevation: Comment: Reviewed labs- mildly elevated alkphos- ALT- Code(s): R79.89 - Other specified abnormal findings of blood chemistry Plan: PLAN: 1/ cont with PPI 2/ recheck alk phos and CRP, stool panel 3/ disucssed VCE to eval small bowel, would like to do it (3) Family history of hemochromatosis: Comment: Maternal grandmother- genetic counseling referral placed Code(s): Z83.49 - Family history of other endocrine, nutritional and metabolic diseases Plan: PLAN: 1/ cont with PPI 2/ recheck alk phos and CRP, stool panel 3/ disucssed VCE to eval small bowel, would like to do it (4) Bloating: Code(s): R14.0 - Abdominal distension (gaseous) Plan: PLAN: 1/ cont with PPI 2/ recheck alk phos and CRP, stool panel 3/ disucssed VCE to eval small bowel, would like to do it Orders: Orders Vitamin B12 and Folate Today I73.00 - Raynaud's syndrome without gangrene, R14.0 - Abdominal distension (gaseous), R79.89 - Other specified abnormal findings of blood chemistry, Z83.49 - Family history of other endocrine, nutritional and metabolic diseases Ferritin Today I73.00 - Raynaud's syndrome without gangrene, R14.0 - Abdominal distension (gaseous), R79.89 - Other specified abnormal findings of blood chemistry, Z83.49 - Family history of other endocrine, nutritional and metabolic diseases Lactoferrin, Fecal, Quant. Today K51.50 - Left sided colitis without complications Alkaline Phosphatase Isoenzyme Today E83.52 - Hypercalcemia, I73.00 - Raynaud's syndrome without gangrene, R14.0 - Abdominal distension (gaseous), R79.89 - Other specified abnormal findings of blood chemistry, Z83.49 - Family history of other endocrine, nutritional and metabolic diseases Complete Blood Count Auto Diff Today I73.00 - Raynaud's syndrome without gangrene, R14.0 - Abdominal distension (gaseous), R79.89 - Other specified abnormal findings of blood chemistry, Z83.49 - Family history of other endocrine, nutritional and metabolic diseases Comprehensive Met. Panel Today I73.00 - Raynaud's syndrome without gangrene, K75.81 - Nonalcoholic steatohepatitis (DA SILVA), R14.0 - Abdominal distension (gaseous), R79.89 - Other specified abnormal findings of blood chemistry, Z83.49 - Family history of other endocrine, nutritional and metabolic diseases GI Panel Today I73.00 - Raynaud's syndrome without gangrene, R14.0 - Abdominal distension (gaseous), R19.7 - Diarrhea, unspecified, R79.89 - Other specified abnormal findings of blood chemistry, Z83.49 - Family history of other endocrine, nutritional and metabolic diseases CDiff Gene PCR Today I73.00 - Raynaud's syndrome without gangrene, R14.0 - Abdominal distension (gaseous), R79.89 - Other specified abnormal findings of blood chemistry, Z83.49 - Family history of other endocrine, nutritional and metabolic diseases Telehealth Telehealth Location of provider rendering services: practice address Location of patient: address on file Patient Identification confirmed using: Name, : Yes Telehealth method: video Patient verbally consented to treatment: Yes Patient verbally consented to billing insurance company: Yes Patient informed of any privacy concerns related to visit: Yes Minutes spent on Phone/Video with Pt.: 8 Coding Level of Care Code Tele Est Pt Level 3 (90423) Diagnoses Raynauds disease I73.00 LFT elevation R79.89 Family history of hemochromatosis Z83.49 Bloating R14.0
== END 2023-10-10 16:00 | disposition home or self-care (01) ==
LOC: HO.HGI 14:31
PROVIDERS: PCP Internal Medicine; Visit Provider Internal Medicine Gastroenterology
DX: I73.00 Raynaud's syndrome without gangrene (principal); R74.01 Elevation of levels of liver transaminase levels; R14.0 Abdominal distension (gaseous); Z83.49 Family history of other endocrine, nutritional and metabolic diseases
CPT/HCPCS: 99214

== ENCOUNTER 2023-10-10 14:31 | Outpatient (REF) | payer BC, SELFPAY ==
[2023-10-10 16:30] LABS: MANUAL DIFF FLAG NO
[2023-10-10 17:42] LABS: Basophils Absolute Auto 0.1 X10*3/uL (0.0-0.2); Basophils Percent Auto 1.1 % (0-2); Eosinophils Absolute Auto 0.1 X10*3/uL (0.0-0.4); Eosinophils Percent Auto 1.4 % (0-4); Hemoglobin 12.9 g/dl (12.0-16.0); Imm Gran Abs Auto 0.03 X10*3/uL (0.00-0.03); Imm Gran Pct Auto 0.3 % (0.0-0.4); Lymphocytes Percent Auto 20.1 % (20-40); Mean Corpuscular HGB Conc 33.1 g/dl (31.0-35.0); Mean Corpuscular Hemoglobin 30.6 pg (27.0-33.0); Mean Corpuscular Volume 92.4 fL (80.0-98.0); Mean Platelet Volume 11.6 fL (9.4-12.3); Monocytes Absolute Auto 0.9 X10*3/uL (0.1-1.2); Monocytes Percent Auto 9.3 % (2-11); Neutrophils Absolute Auto 6.7 x10*3/uL (2.0-8.3); Neutrophils Percent Auto 67.8 % (45-73); Platelet Count 187 X10*3/uL (160-400); Red Blood Count 4.22 X10*6/uL (4.20-5.50); Red Cell Distribution Width 12.2 % (11.0-16.0); White Blood Count 9.9 X10*3/uL (4.8-10.8)
[2023-10-10 18:12] LABS: Alanine Aminotransferase 13 U/L (0-31); Albumin Level 4.6 g/dL (3.5-5.0); Alkaline Phosphatase 99 U/L (39-117); Anion Gap 11 (12-20); Aspartate Amino Transferase 21 U/L (5-31); Bilirubin Total 0.3 mg/dL (0.0-1.0); Blood Urea Nitrogen 15 mg/dL (9-16); Calcium 9.1 mg/dL (8.4-10.2); Carbon Dioxide 27 mmol/L (22-29); Chloride 107 mmol/L (96-108); Estimated Glomerular Filt Rate > 60; Glucose Random 103 mg/dL (60-115); Potassium 3.7 mmol/L (3.3-5.1); Sodium 141 mmol/L (135-145); Total Protein 7.8 g/dL (6.5-8.0)
[2023-10-10 18:27] LABS: Ferritin 68 ng/mL (10-122)
[2023-10-10 18:44] LABS: Vitamin B12 > 2000 pg/mL (200-900)
[2023-10-17 14:29] LABS: Alk.Phos Iso. Macrohepatic 0 % (<=0); Alk.Phos Isoenzymes Bone 60 % (28-66); Alk.Phos Isoenzymes Intest 15 % (1-24); Alk.Phos Isoenzymes Liver 25 % (25-69); Alk.Phos Isoenzymes Placental 0 % (<=0); Alk.Phos Isoenzymes Total 84 U/L (31-125)
== END 2023-10-10 14:32 | disposition home or self-care (01) ==
LOC: HO.LAB 14:31
PROVIDERS: PCP Internal Medicine; Visit Provider Internal Medicine Gastroenterology
DX: K75.81 Nonalcoholic steatohepatitis (NASH) (principal); E83.52 Hypercalcemia; I73.00 Raynaud's syndrome without gangrene; R79.89 Other specified abnormal findings of blood chemistry; R14.0 Abdominal distension (gaseous); Z83.49 Family history of other endocrine, nutritional and metabolic diseases
CPT/HCPCS: 36415; 80053; 82607; 82728; 82746; 84080; 85025

== ENCOUNTER 2023-10-12 09:54 | Outpatient (REF) | payer BC, SELFPAY ==
[2023-10-12 10:53] LABS: CDiff Gene PCR NEGATIVE (Negative)
[2023-10-12 12:41] LABS: Adenovirus F 40/41 Not Detected (Not Detect.); Astrovirus Not Detected (Not Detect.); Campylobacter Not Detected (Not Detect.); Cryptosporidium Not Detected (Not Detect.); Cyclospora cayetanensis Not Detected (Not Detect.); E. coli EAEC Not Detected (Not Detect.); E. coli EPEC Not Detected (Not Detect.); E. coli ETEC Not Detected (Not Detect.); E. coli STEC Not Detected (Not Detect.); Entamoeba histolytica Not Detected (Not Detect.); Giardia lamblia Not Detected (Not Detect.); Norovirus GI/GII Not Detected (Not Detect.); Plesiomonas shigelloides Not Detected (Not Detect.); Rotavirus A Not Detected (Not Detect.); Salmonella Not Detected (Not Detect.); Sapovirus Not Detected (Not Detect.); Shigella sp./EIEC Not Detected (Not Detect.); Vibrio Not Detected (Not Detect.); Vibrio Cholerae Not Detected (Not Detect.); Yersinia enterocolitica Not Detected (Not Detect.)
[2023-10-19 21:53] LABS: Lactoferrin, Fecal, Quant. <6.25 mcg/mL (<7.25)
== END 2023-10-12 09:55 | disposition home or self-care (01) ==
LOC: HO.LNP 09:54
PROVIDERS: Visit Provider Internal Medicine Gastroenterology
DX: R19.7 Diarrhea, unspecified (principal); I73.00 Raynaud's syndrome without gangrene; R79.89 Other specified abnormal findings of blood chemistry; K51.50 Left sided colitis without complications; R14.0 Abdominal distension (gaseous); Z83.49 Family history of other endocrine, nutritional and metabolic diseases
CPT/HCPCS: 83631; 87493; 87507

== ENCOUNTER 2023-11-09 09:52 | Outpatient (AMB) | payer BC, SELFPAY ==
--- NOTE | 2023-11-09 09:56 | MHC.PC.OV ---
Vital Signs 11/09/23 09:59 Height 5 ft 3 in Weight 112 lb BMI 19.8 BP 108/60 Blood Pressure Location Lt brachial Position Sitting Pulse 80 Pulse Source Pulse Oximeter Pulse Oximetry (%) 100 Oxygen Delivery Method Room Air Intake Visit Reasons: irritated mole on stomach Allergies amoxicillin [AMOXICILLIN] Allergy (Intermediate, Verified 11/09/23 09:58) RASH, hives Iodinated Contrast Media [Contrast Dye] Allergy (Intermediate, Verified 11/09/23 09:58) Hives, itching Medication List - Last Reconciled 11/09/23 by Vannesa Knight MD famotidine (Pepcid) 20 mg PO DAILY PRN fluocinolone and shower cap 0.01 % 1 ea topical NEEDED PRN loratadine (Claritin) 10 mg PO DAILY omeprazole 20 mg PO DAILY Tobacco use date assessed: 11/09/23 Dental Screening Dental Screen Date: 11/09/23 Did you have a dental visit in the last 12 months?: No Was dental information given to patient?: Patient has dentist HPI irritated mole on stomach HPI Details Patient is 28-year-old female came in today to be evaluated for change in mole, patient says that she had it for years but recently for the past 2 3 months it has been getting bigger and now it is irritated and is getting caught in her clothing. On examination patient have developed call if lower shape skin growth slightly above her umbilicus on the abdomen. There is no signs of infection but I do see the irritation around. I am placing a referral for her to see boat detailer. Meanwhile I would recommend to keep it covered so it does not get caught in her clothing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 1. Little interest or pleasure in doing things: not at all 2. Feeling down, depressed, or hopeless: not at all 3. Trouble falling or staying asleep, or sleeping too much: not at all 4. Feeling tired or having little energy: not at all 5. Poor appetite or overeating: not at all 6. Feeling bad about yourself - or that you are a failure or have let yourself or your family down: not at all 7. Trouble concentrating on things, such as reading the newspaper or watching television: not at all 8. Moving or speaking so slowly that other people could have noticed. Or the opposite - being so fidgety or restless that you have been moving around a lot more than usual: not at all 9. Thoughts that you would be better off or of hurting yourself in some way: not at all Total score: 0 Depression Screening Interpretation: Negative Depression Screening Done: Yes 23786 - PHQ-9 Billing: Yes Source: Developed by Drs. Blanco Preciado, Sylvia Zaman, Joseph Ku and colleagues, with an educational luna from [employer]. Thrive Questionnaire Date Thrive assessed: 11/09/23 I am a: Patient What is your living situation today?: I have a steady place to live Within the past 12 months, did the food you bought not last and you didn't have the money to get more?: Never true Within the past 12 months, did you worry whether your food would run out before you got money to buy more?: Never true Do you have trouble paying for medicines?: No Do you have trouble getting transportation to medical appointments?: No Do you have trouble paying your heating and electricity bill?: No Do you have trouble taking care of your child, family member or friend?: No Do you have trouble with day-to-day activities such as bathing, preparing meals, shopping, managing finances, etc.?: No Are you currently unemployed and looking for a job?: No Are you interested in more education?: No Please select the resources that you would like help with: None Currently or been in a relationship where the following occur: no concerns reported AUDIT C Alcohol Use Questionnaire (AUDIT-C) 1. How often do you have a drink containing alcohol?: Never 3. How often do you have six or more drinks on one occasion?: Never Total Score: 0 SKYE-7 AMB Questionnaire SKYE-7 Date SKYE - 7 assessed: 11/09/23 Feeling nervous, anxious, or on edge: 0 = Not at all Not being able to stop or control worryin = Not at all Worrying too much about different things: 0 = Not at all Trouble relaxin = Not at all Being so restless that it is hard to sit still: 0 = Not at all Becoming easily annoyed or irritable: 0 = Not at all Feeling afraid as if something awful might happen: 0 = Not at all Total SKYE-7 score (0-4 normal; 5-9 mild; 10-14 moderate; 15-21 severe): 0 Source: Developed by Drs. Blanco Preciado, Sylvia Zaman, Joseph Ku and colleagues, with an educational luna from [employer]. SKYE-7 Assessment Billing SKYE-7 Assessment Tool: SKYE-7 Assessment 06370 Review of Systems Const All systems reviewed & are unremarkable except as noted in HPI and below Physical exam (Primary Care) Vital Signs: Last Vital Signs Pulse 80 11/09/23 09:59 BP 108/60 11/09/23 09:59 Pulse Ox 100 11/09/23 09:59 Oxygen Delivery Method Room Air 11/09/23 09:59 BMI result Body Mass Index 19.8 Tobacco/Smoking Status: Tobacco use Status Tobacco use date assessed 11/09/23 11/09/23 10:02 Patient Tobacco Use Status Never used Tobacco 11/09/23 10:02 e-Cigarette/Vaping Use Never Used 11/09/23 10:02 PHQ-9: PHQ-9 Score PHQ-9: Total score 0 11/09/23 10:14 Depression Screening Interpretation: Negative Thrive Assessment: Date of Thrive Assessment Date Thrive assessed 11/09/23 11/09/23 10:02 Currently or been in a relationship where the following occur: no concerns reported Const General: no acute distress Orientation/consciousness: patient oriented x3 Eyes General: appearance normal, both eyes and all related structures Resp Effort & Inspection: normal respiratory effort and able to speak in complete sentences Auscultation: clear to auscultation bilaterally Skin Full body images: 1. 1 cm by 1 cm cauliflower shaped skin growth with slight irritation in the surrounding area without any signs of infection or inflammation Neuro General: patient oriented x3 Psych Mental Status: mental status grossly normal Assessment and Plan Assessment & Plan (1) Abnormal skin growth: Code(s): D49.2 - Neoplasm of unspecified behavior of bone, soft tissue, and skin Plan Patient is 28-year-old female came in today to be evaluated for change in mole, patient says that she had it for years but recently for the past 2 3 months it has been getting bigger and now it is irritated and is getting caught in her clothing. On examination patient have developed call if lower shape skin growth slightly above her umbilicus on the abdomen. There is no signs of infection but I do see the irritation around. I am placing a referral for her to see boat detailer. Meanwhile I would recommend to keep it covered so it does not get caught in her clothing. Orders: Referrals Dermatology Referral D49.2 - Neoplasm of unspecified behavior of bone, soft tissue, and skin Coding Level of Care Code Est Pt Level 3 (50471) Diagnoses Abnormal skin growth D49.2 Additional Codes SKYE-7 Assessment Billing - SKYE-7 Assessment Tool: SKYE-7 Assessment 84627 ([id number])
[2023-11-09 09:59] VITALS: BP 108/60; PULSE 80; O2SAT 100; BMI 19.8
== END 2023-11-09 12:17 | disposition home or self-care (01) ==
PROVIDERS: PCP Internal Medicine; Visit Provider Internal Medicine
DX: D49.2 Neoplasm of unspecified behavior of bone, soft tissue, and skin (principal)
CPT/HCPCS: 99213

== ENCOUNTER 2023-11-16 07:57 | Outpatient (AMB) | payer BC, SELFPAY ==
--- NOTE | 2023-11-16 08:05 | MHC.OFFVIS ---
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 Doing well with no concerns. She tries to eat healthy and stays active with exercise. Regular monthly menses q 24-26d, x 5d, light. OTC meds for cramping. Past hx of PCB. Currently is not sexually active. She denies vaginal itching and irritation. Requests STI screening today. Denies family history of breast, ovarian or colon cancer. Last pap smear 2020, negative. 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 Sexual orientation: Lesbian/Pete/Homosexual Gender identity: Female Cognitive needs: No Hearing needs: No Vision needs: Yes Female Reproductive History Menstrual Age of Menarche: 14 Date of last menstrual period: 11/05/23 control method: none Date of last pap smear: 02/16/21 (negative) History of abnormal pap smear: No History of STI: No Review of Systems Const All systems reviewed & are unremarkable except as noted in HPI and below Reports as per HPI Eyes Reports no additional complaints ENT Reports no additional complaints Card Reports no additional complaints Resp Reports no additional complaints GI Reports as per HPI and Reports no additional complaints Reports as per HPI Musc Reports no additional complaints Skin/Breast Reports as per HPI Neuro Reports no additional complaints Psych Reports no additional complaints Endo Reports no additional complaints Carlos/Lymph Reports no additional complaints Aller/Immun Reports no additional complaints Physical Exam Vital Signs: Last Vital Signs BP 104/62 11/16/23 08:06 BMI result Body Mass Index 19.5 Const General: cooperative, healthy appearing, no acute distress, well developed and alert Orientation/consciousness: patient oriented x3 HEENT Head: Yes normal to inspection Eyes General: appearance normal, both eyes and all related structures Neck Neck: Yes normal visual inspection Thyroid: Thyroid normal Chest Chest palpation & inspection: normal inspection of the chest and other (no puckering, dimpling, peau de orange, retraction, discharge, masses) Breast/axilla inspection: normal inspection of the breasts Breast/axilla palpation: normal palpation of the breasts Resp Effort & Inspection: normal respiratory effort GI Inspection: Yes normal to inspection Palpation (GI): Soft to palpation Rectal Exam - Female: deferred General: Yes bladder normal to palpation External Female Exam: normal external appearance and normal appearance of the urethra Speculum Exam - Vagina: normal appearance of the vagina, normal palpation and normal vaginal discharge Speculum Exam - Cervix: normal appearance of the cervix, normal palpation and Other cervical findings present (bled slightly with Pap) Bimanual exam- vagina & uterus: normal bimanual exam, normal palpation, uterine size normal, bladder normal to palpation, normal palpation and non-tender Bimanual Exam- Adnexa, other: no masses Skin General skin exam: no rashes or lesions noted Rashes: no rashes Neuro General: patient oriented x3 Cognition (Neuro): normal cognition Extrem General: Yes normal to inspection Psych Attitude: cooperative Thought process: Normal thought process present Assessment & Plan Assessment & Plan (1) Encounter for well woman exam with routine gynecological exam: Code(s): Z01.419 - Encounter for gynecological examination (general) (routine) without abnormal findings Plan Discussed: Current recommendations for pap smears per ASCCP guidelines. Breast awareness and periodic breast exams. Maintain a healthy lifestyle including a well balanced diet and routine exercise. Use condoms for STI prevention. Monitor cycle control if cycles are less than 21 days in follow-up for management options. All of her questions and concerns were addressed to the best of my ability. RTO in one year for annual dope firer examination. This note is constructed using voice recognition software. While every effort has been made to ensure accuracy, chute builder errors may have been included. Orders: Orders Hepatitis C Antibody Today Z20.2 - Contact with and (suspected) exposure to infections with a predominantly sexual mode of transmission Syphilis Screen Today Z20.2 - Contact with and (suspected) exposure to infections with a predominantly sexual mode of transmission Bacterial Vaginosis Panel Today Z20.2 - Contact with and (suspected) exposure to infections with a predominantly sexual mode of transmission HIV Ab/Ag Today Z20.2 - Contact with and (suspected) exposure to infections with a predominantly sexual mode of transmission Hepatitis B Core Antibody Today Z20.2 - Contact with and (suspected) exposure to infections with a predominantly sexual mode of transmission CT NG by PCR Today Z20.2 - Contact with and (suspected) exposure to infections with a predominantly sexual mode of transmission Pap Smear Today Z12.4 - Encounter for screening for malignant neoplasm of cervix Coding Level of Care Code Est Pt Prev Care 18-39y(18366) Diagnoses Encounter for well woman exam with routine gynecological exam Z01.419
[2023-11-16 08:06] VITALS: BP 104/62; BMI 19.5
== END 2023-11-16 08:29 | disposition home or self-care (01) ==
PROVIDERS: PCP Internal Medicine; Visit Provider Advanced Practice Midwife
DX: Z01.419 Encounter for gynecological examination (general) (routine) without abnormal findings (principal)
CPT/HCPCS: 99395

== ENCOUNTER 2023-11-16 07:57 | Outpatient (REF) | payer BC, SELFPAY ==
[2023-11-16 11:08] LABS: HBc Num1 0.11 S/CO (0.00-0.79); HIV AB/AG Nonreactive (Nonreactive); HIV Num 1 0.06 S/CO (0.00-0.99); Hepatitis B Core Antibody Nonreactive (Nonreactive); Syphilis Screen Nonreactive (Nonreactive); ~HepC Num1 0.13 S/CO (0.00-0.79); ~Hepatitis C Antibody Nonreactive (Nonreactive)
[2023-11-16 14:40] LABS: CT PCR NOT DETECTED (Not Detect.); NG PCR NOT DETECTED (Not Detect.)
[2023-11-17 09:22] LABS: BV Int Neg Control Negative (Negative); BV Int Pos Control Positive (Positive)
== END 2023-11-16 07:58 | disposition home or self-care (01) ==
LOC: HO.LAB 07:57
PROVIDERS: PCP Internal Medicine; Visit Provider Advanced Practice Midwife
DX: Z01.419 Encounter for gynecological examination (general) (routine) without abnormal findings (principal); Z11.4 Encounter for screening for human immunodeficiency virus [HIV]; Z20.2 Contact with and (suspected) exposure to infections with a predominantly sexual mode of transmission
CPT/HCPCS: 0353U; 86704; 86780; 86803; 87389; 87480; 87510; 87660; 88142

== ENCOUNTER 2023-12-12 08:20 | Outpatient (AMB) | payer BC, SELFPAY ==
--- NOTE | 2024-01-01 10:58 | MHC.OFFVIS ---
Intake Intake Visit Reasons: CAPSULE ENDOSCOPY Allergies amoxicillin [AMOXICILLIN] Allergy (Intermediate, Verified 11/09/23 09:58) RASH, hives Iodinated Contrast Media [Contrast Dye] Allergy (Intermediate, Verified 11/09/23 09:58) Hives, itching PFSH Medical History Murmur Raynauds disease Surgical History Hx of endoscopy Hx of wisdom tooth extraction Family History Other Mental health disorder Substance use disorder Social History (Updated 11/16/23 @ 08:32 by Ashley Mcwilliams CNM) Housing: Apartment Alcohol intake: never Patient Tobacco Use Status: Never used Tobacco e-Cigarette/Vaping Use: Never Used Current occupational status: employed 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 Rapid entry of caspule into the Duodenum entered at 1 min 47. Good views of small bowel with normal appearing mucosa. cecum reached at 3 hr 36 min Conclusion: possible atrophic gastritis. otherwise no masses, bleeding or inflammation noted. Might have rapid emptying which s causing some of her sx. Capsule Endoscopy CPT Code: 74298 - Capsule Endoscopy Assessment & Plan Assessment & Plan (1) Gastritis: Code(s): K29.70 - Gastritis, unspecified, without bleeding Plan: see above Coding Level of Care Code Procedure Only Diagnoses Gastritis K29.70 CPT Codes AMB Capsule Endoscopy - Capsule Endoscopy CPT Code: 56895 - Capsule Endoscopy ([id number])
== END 2023-12-12 08:47 | disposition home or self-care (01) ==
PROVIDERS: PCP Internal Medicine; Visit Provider Internal Medicine Gastroenterology
DX: K29.70 Gastritis, unspecified, without bleeding (principal)
CPT/HCPCS: 91110

== ENCOUNTER → 2023-12-12 08:20 | Outpatient (BNVA) | payer BC, SELFPAY | PROVIDERS: PCP Internal Medicine; Visit Provider Internal Medicine Gastroenterology | DX: K29.70 Gastritis, unspecified, without bleeding (principal) | CPT/HCPCS: 91110 ==

== ENCOUNTER 2024-02-01 08:23 | Outpatient (AMB) | payer BC, SELFPAY ==
[2024-02-01 08:33] VITALS: BP 118/74; PULSE 74; O2SAT 100
--- NOTE | 2024-02-01 08:33 | A.OFFPC_ITS ---
Vital Signs 02/01/24 08:33 Height 5 ft 3 in Weight 113 lb BMI 20.0 BP 118/74 Blood Pressure Location Lt brachial Position Sitting Pulse 74 Pulse Source Pulse Oximeter Pulse Oximetry (%) 100 Oxygen Delivery Method Room Air Intake Visit Reasons: annual PE Intake Note: Pt is here today for PE. Allergies amoxicillin [AMOXICILLIN] Allergy (Intermediate, Verified 02/01/24 08:34) RASH, hives Iodinated Contrast Media [Contrast Dye] Allergy (Intermediate, Verified 02/01/24 08:34) Hives, itching Medication List - Last Reconciled 02/01/24 by Vannesa Knight MD fluocinolone and shower cap 0.01 % 1 ea topical NEEDED PRN loratadine (Claritin) 10 mg PO DAILY mecobalamin (vitamin B12) mcg PO omeprazole 20 mg PO DAILY Tobacco use date assessed: 02/01/24 HPI annual PE HPI Details Physical exam appointment Patient is doing well offer no complaints She is using scalp solution steroid to control psoriasis and is doing well [facility] Goes to [facility] for abdominal [facility]. 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 1. Little interest or pleasure in doing things: not at all 2. Feeling down, depressed, or hopeless: several days 3. Trouble falling or staying asleep, or sleeping too much: not at all 4. Feeling tired or having little energy: several days 5. Poor appetite or overeating: not at all 6. Feeling bad about yourself - or that you are a failure or have let yourself or your family down: not at all 7. Trouble concentrating on things, such as reading the newspaper or watching television: not at all 8. Moving or speaking so slowly that other people could have noticed. Or the opposite - being so fidgety or restless that you have been moving around a lot more than usual: not at all 9. Thoughts that you would be better off or of hurting yourself in some way: not at all Total score: 2 Depression Screening Interpretation: Negative Depression Screening Done: Yes 13228 - PHQ-9 Billing: Yes Source: Developed by Drs. Blanco Preciado, Sylvia Zaman, Joseph Ku and colleagues, with an educational luna from [employer]. Thrive Questionnaire Date Thrive assessed: 02/01/24 I am a: Patient What is your living situation today?: I have a steady place to live Within the past 12 months, did the food you bought not last and you didn't have the money to get more?: Never true Within the past 12 months, did you worry whether your food would run out before you got money to buy more?: Never true Do you have trouble paying for medicines?: No Do you have trouble getting transportation to medical appointments?: No Do you have trouble paying your heating and electricity bill?: No Do you have trouble taking care of your child, family member or friend?: No Do you have trouble with day-to-day activities such as bathing, preparing meals, shopping, managing finances, etc.?: No Are you currently unemployed and looking for a job?: No Are you interested in more education?: No Please select the resources that you would like help with: None Currently or been in a relationship where the following occur: no concerns reported THRIVE Score: 0 SKYE-7 AMB Questionnaire SKYE-7 Date SKYE - 7 assessed: 02/01/24 Feeling nervous, anxious, or on edge: 0 = Not at all Not being able to stop or control worryin = Not at all Worrying too much about different things: 1 = Several days Trouble relaxin = Several days Being so restless that it is hard to sit still: 0 = Not at all Becoming easily annoyed or irritable: 1 = Several days Feeling afraid as if something awful might happen: 0 = Not at all Total SKYE-7 score (0-4 normal; 5-9 mild; 10-14 moderate; 15-21 severe): 3 Source: Developed by Drs. Blanco Preciado, Sylvia Zaman, Joseph Ku and colleagues, with an educational luna from [employer]. SKYE-7 Assessment Billing SKYE-7 Assessment Tool: KSYE-7 Assessment 98711 Review of Systems Const Denies chills, Denies fever(s) and Denies headache(s) Eyes Denies blurry vision ENT Denies headache(s), Denies nasal discharge, Denies nasal obstruction, Denies odynophagia and Denies sinus pain Card Denies chest pain at rest and Denies chest pain with activity Resp Denies cough and Denies hemoptysis GI Denies diarrhea, Denies odynophagia, Denies vomiting and Denies hematemesis Reports as per HPI Musc Denies abnormal gait Skin/Breast Reports as per HPI Neuro Denies Neuro-related abnormal movements, Denies Abnormal speech present, Denies abnormal gait, Denies headache(s) and Denies Sensory deficit (Neuro) Psych Denies mood swings and Denies paranoia Endo Reports as per HPI Carlos/Lymph Reports as per HPI Aller/Immun Reports as per HPI Physical exam (Primary Care) Vital Signs: Last Vital Signs Pulse 74 02/01/24 08:33 BP 118/74 02/01/24 08:33 Pulse Ox 100 02/01/24 08:33 Oxygen Delivery Method Room Air 02/01/24 08:33 BMI result Body Mass Index 20.0 Tobacco/Smoking Status: Tobacco use Status Tobacco use date assessed 02/01/24 02/01/24 08:36 Patient Tobacco Use Status Never used Tobacco 02/01/24 08:34 e-Cigarette/Vaping Use Never Used 02/01/24 08:34 PHQ-9: PHQ-9 Score PHQ-9: Total score 2 02/01/24 08:55 Depression Screening Interpretation: Negative Thrive Assessment: Date of Thrive Assessment Date Thrive assessed 02/01/24 02/01/24 08:36 Currently or been in a relationship where the following occur: no concerns r eported Const General: cooperative, comfortable and no acute distress Orientation/consciousness: patient oriented x3 HENMT Head: Yes normocephalic and Yes atraumatic Eyes General: appearance normal, both eyes and all related structures Pupils: Equal, round and reactive pupils present EOM: EOMs intact bilaterally Neck Neck: Yes supple and No lymphadenopathy Thyroid: Thyroid normal Lymphatic: no lymphadenopathy noted Resp Effort & Inspection: normal respiratory effort and able to speak in complete sentences Auscultation: clear to auscultation bilaterally Cardio Heart sounds: S1 normal heart sound present and S2 normal heart sound present GI Palpation (GI): Soft to palpation and nontender Auscultation: normal bowel sounds General: Yes no CVA tenderness Back/Spine/Pelvis Back: no CVA tenderness Skin General skin exam: elasticity normal and turgor normal Neuro General: patient oriented x3 and gait normal Cranial nerves: Yes Equal, round and reactive pupils present Speech: No Abnormal speech present Sensory Exam: No Sensory deficit (Neuro) Coordination: tandem gait normal and Romberg test negative Extrem General: Yes normal exam except as noted and No edema Assessment and Plan Assessment & Plan (1) Encounter for general adult medical examination with abnormal findings: Code(s): Z00.01 - Encounter for general adult medical examination with abnormal findings (2) Psoriasis of scalp: Code(s): L40.9 - Psoriasis, unspecified Plan Physical exam appointment Patient is doing well offer no complaints She is using scalp solution steroid to control psoriasis and is doing well [facility] Goes to [facility] for abdominal care. Patient will return in 1 year for physical exam Coding Level of Care Code Est Pt Prev Care 18-39y(74673) Diagnoses Encounter for general adult medical examination with abnormal findings Z00.01 Psoriasis of scalp L40.9 Additional Codes SKYE-7 Assessment Billing - SKYE-7 Assessment Tool: SKYE-7 Assessment 38768 ([id number])
== END 2024-02-01 08:54 | disposition home or self-care (01) ==
PROVIDERS: Visit Provider Internal Medicine
DX: Z00.00 Encounter for general adult medical examination without abnormal findings (principal); L40.9 Psoriasis, unspecified
CPT/HCPCS: 99395

== ENCOUNTER 2024-02-17 11:31 | Outpatient (AMB) | payer BC, SELFPAY ==
--- NOTE | 2024-02-17 11:31 | A.OFFVIS_ITS ---
Intake Intake Visit Reasons: 4 mos follow up Intake Note: Yakelin presents as a video call - follow up 4 month. CC: States that she had the capsule endoscopy done. Same symptoms and just wondering results to the capsule. Hand Roller Engraver Required: No Allergies amoxicillin [AMOXICILLIN] Allergy (Intermediate, Verified 02/01/24 08:34) RASH, hives Iodinated Contrast Media [Contrast Dye] Allergy (Intermediate, Verified 02/01/24 08:34) Hives, itching HPI 4 mos follow up HPI Details 28 yr old f being called for f/u RECAP: [place] [facility] [place] with elevated liver enzymes She had upper endoscopy 2015 and 2017- GES- all normal- except mild gastrirtis- per patient report-reliable report She was c/o nausea easily-bloating- never has eaten much at one time- Has loose stools- has anxiety seems to coincide-however not always Mat GM- hemochromatosis She had EGD 03/29 DX: gastritis schatzki ring esophagitis LABS: neg celiac neg A1At AMA neg hep viral serologies neg Alk phos elevation, isoenzyme, mostly intestine origin IMAGING: US liver-- borderline spleen CTe--no inflammation VCE: 12/2023--- rapid gastric transit, atrophic gastritis INTERIM: symptoms variable, cramping after eating still taking PPI does admit to dumping syndrome type sx EXAM: GENERAL: The patient is well developed and nontoxic. A?P; 1/ Alk phos elevation, mostly intestinal origin, why she has this is unclear as she had nml CTe 2/ Reflux, main sx better with PPI 3/ abn bowel habits, and relapse of naus ea--she may have dumping syndrome PLAN: 1/ cont with PPI 2/ advised on diet, small meals, cut theresa k on carbs, avoid fluids at meal times for 30 mins, lye down after eating --can think about bentyl and TCA in future, add fiber 3/ hold off on formal GES for the moment PFSH Medical History Murmur Raynauds disease Surgical History Hx of endoscopy Hx of wisdom tooth extraction Family History Other Mental health disorder Substance use disorder Social History Housing: Apartment Alcohol intake: never Patient Tobacco Use Status: Never used Tobacco e-Cigarette/Vaping Use: Never Used Current occupational status: employed 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 Sexual orientation: Lesbian/Pete/Homosexual Gender identity: Female Cognitive needs: No Hearing needs: No Vision needs: Yes Female Reproductive History Menstrual Age of Menarche: 14 Assessment & Plan Assessment & Plan (1) 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 Plan: A?P; 1/ Alk phos elevation, mostly intestinal origin, why she has this is unclear as she had nml CTe 2/ Reflux, main sx better with PPI 3/ abn bowel habits, and relapse of nausea--she may have dumping syndrome PLAN: 1/ cont with PPI 2/ advised on diet, small meals, cut back on carbs, avoid fluids at meal times for 30 mins, lye down after eating --can think about bentyl and TCA in future, add fiber 3/ hold off on formal GES for the moment Telehealth Telehealth Location of provider rendering services: practice address Location of patient: address on file Patient Identification confirmed using: Name, : Yes Telehealth method: video Patient verbally consented to treatment: Yes Patient verbally consented to billing insurance company: Yes Patient informed of any privacy concerns related to visit: Yes Minutes spent on Phone/Video with Pt.: 9 Coding Level of Care Code Tele Est Pt Level 3 (01807) Diagnoses Dumping syndrome K91.1
== END 2024-02-17 13:38 | disposition home or self-care (01) ==
LOC: HO.HGI 11:31
PROVIDERS: PCP Internal Medicine; Visit Provider Internal Medicine Gastroenterology
DX: K91.1 Postgastric surgery syndromes (principal)
CPT/HCPCS: 99213

== ENCOUNTER → 2024-02-17 11:31 | Outpatient (BNVA) | payer BC, SELFPAY | PROVIDERS: PCP Internal Medicine; Visit Provider Internal Medicine Gastroenterology ==

== ENCOUNTER 2024-02-28 10:05 | Outpatient (REF) | payer BC, SELFPAY ==
[2024-02-29 13:25] LABS: BV Int Neg Control Negative (Negative); BV Int Pos Control Positive (Positive)
[2024-02-29 21:49] LABS: Herpes Simplex Type 1 IgG <0.90 index; Herpes Simplex Type 2 IgG <0.90 index
== END 2024-02-28 10:06 | disposition home or self-care (01) ==
LOC: HO.LAB 10:05
PROVIDERS: Absent Provider Advanced Practice Midwife; PCP Internal Medicine; Visit Provider Advanced Practice Midwife
DX: N89.8 Other specified noninflammatory disorders of vagina (principal); N90.89 Other specified noninflammatory disorders of vulva and perineum
CPT/HCPCS: 36415; 86695; 86696; 87255; 87480; 87510; 87660

== ENCOUNTER 2024-02-28 10:05 | Outpatient (AMB) | payer BC, SELFPAY ==
--- NOTE | 2024-02-28 10:06 | A.OFFVIS_ITS ---
Vital Signs 02/28/24 10:07 Height 5 ft 3 in Weight 113 lb BMI 20.0 BP 118/62 Intake Visit Reasons: vag bumps Strategic Marketing Leader: Strategic Marketing Leader Present (Lindsey) Allergies amoxicillin [AMOXICILLIN] Allergy (Intermediate, Verified 02/28/24 10:07) RASH, hives Iodinated Contrast Media [Contrast Dye] Allergy (Intermediate, Verified 02/28/24 10:07) Hives, itching Is last menstrual period known: Yes Last menstrual period: 02/12/24 HPI Comments Details: Patient is here today with complaints of multiple bumps on the external labia onset was last Tuesday a week ago. They are painful externally and has reported deep internal pain along with swollen lymph glands on the corresponding groin. She has a new intimate partner who was tested for all STDs including herpes and was negative. 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 Sexual orientation: Lesbian/Pete/Homosexual Gender identity: Female Cognitive needs: No Hearing needs: No Vision needs: Yes Female Reproductive History Menstrual Age of Menarche: 14 Date of last menstrual period: 02/12/24 Review of Systems Const All systems reviewed & are unremarkable except as noted in HPI and below Physical Exam Vital Signs: Last Vital Signs BP 118/62 02/28/24 10:07 BMI result Body Mass Index 20.0 Const General: cooperative, healthy appearing and no acute distress Orientation/consciousness: patient oriented x3 GI Inspection: Yes normal to inspection Palpation (GI): Soft to palpation and Other GI palpation findings present (Nontender) Rectal Exam - Female: visual inspection normal Other: Cluster of herpetic lesions on the lower right labia, enlarged lymph nodes right groin General: Yes bladder normal to palpation External Female Exam: normal appearance of the urethra Speculum Exam - Vagina: normal appearance of the vagina, normal palpation and abnormal vaginal discharge (Clumpy discharge) Speculum Exam - Cervix: normal appearance of the cervix and normal palpation Bimanual exam- vagina & uterus: normal bimanual exam, normal palpation, uterine size normal, bladder normal to palpation, normal palpation, uterine shape normal and non-tender Bimanual Exam- Adnexa, other: normal adnexae Neuro General: patient oriented x3 Assessment & Plan Assessment & Plan (1) Vulvar lesion: Code(s): N90.89 - Other specified noninflammatory disorders of vulva and perineum Plan Discussed: Possibility of shingles verses HSV. Plan treatment with valacyclovir and Zovirax, comfort measures, Tylenol as needed p.r.n. for discomfort. Follow-up sooner if needed-increase discomfort worsening symptoms. Follow-up in 10-14 days in person. All of her questions and concerns were addressed to the best of my ability. She is agreeable to the plan of care. This note is constructed using voice recognition software. While every effort has been made to ensure accuracy, shellacker errors may have been included. Orders: Orders Herpes Simplex Virus Ab IgG Today N90.89 - Other specified noninflammatory disorders of vulva and perineum Herpes Virus Culture Today N90.89 - Other specified noninflammatory disorders of vulva and perineum Bacterial Vaginosis Panel Today N89.8 - Other specified noninflammatory disorders of vagina Medications: New valacyclovir (Valtrex) 1,000 mg PO TID 21 tabs 0RF 7 days acyclovir 5% (Zovirax) 1 appl topical 6XD PRN 30 grams 2RF prn 7 days Coding Level of Care Code Est Pt Level 4 (56978) Diagnoses Vulvar lesion N90.89
[2024-02-28 10:07] VITALS: BP 118/62
== END 2024-02-28 10:51 | disposition home or self-care (01) ==
PROVIDERS: PCP Internal Medicine; Visit Provider Advanced Practice Midwife
DX: N90.89 Other specified noninflammatory disorders of vulva and perineum (principal)
CPT/HCPCS: 99214

== ENCOUNTER 2024-03-14 14:10 | Outpatient (AMB) | payer BC, SELFPAY ==
[2024-03-14 14:19] VITALS: BP 112/70
--- NOTE | 2024-03-14 14:19 | A.OFFVIS_ITS ---
Vital Signs 03/14/24 14:19 Height 5 ft 3 in Weight 113 lb BMI 20.0 BP 112/70 Intake Visit Reasons: 2 week follow up Millwright Helper: Millwright Helper Present (Lindsey) Allergies amoxicillin [AMOXICILLIN] Allergy (Intermediate, Verified 03/14/24 14:19) RASH, hives Iodinated Contrast Media [Contrast Dye] Allergy (Intermediate, Verified 03/14/24 14:19) Hives, itching Is last menstrual period known: Yes HPI Comments Details: Patient is here for a follow up, reason recent episode of cluster of vesicles, treated for shingles. She reports her symptoms have resolved, occasional slight irritation residual at site of lesions. She has completed her course of Valtrex. 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 Sexual orientation: Lesbian/Pete/Homosexual Gender identity: Female Cognitive needs: No Hearing needs: No Vision needs: Yes Female Reproductive History Menstrual Age of Menarche: 14 Review of Systems Const All systems reviewed & are unremarkable except as noted in HPI and below Endo Reports no additional complaints Physical Exam Vital Signs: Last Vital Signs BP 112/70 03/14/24 14:19 BMI result Body Mass Index 20.0 Const General: cooperative, healthy appearing and no acute distress Other: External labia region well healed Psych Appearance: well kempt Attitude: cooperative Thought process: Normal thought process present Assessment & Plan Assessment & Plan (1) Shingles: Code(s): B02.9 - Zoster without complications Qualifiers: Herpes zoster complications: without complications Qualified Code(s): B02.9 - Zoster without complications Plan Discussed lab findings, immune system challenges. Next appointment for baker operator automatic annual scheduled in November 2024. All of her questions and concerns were addressed to the best of my ability. This note is constructed using voice recognition software. While every effort has been made to ensure accuracy, oracle database consultant errors may have been included. Coding Level of Care Code Est Pt Level 3 (43783) Diagnoses Herpes zoster without complication B02.9 Herpes zoster complications: without complications
== END 2024-03-14 15:54 | disposition home or self-care (01) ==
PROVIDERS: PCP Internal Medicine; Visit Provider Advanced Practice Midwife
DX: B02.9 Zoster without complications (principal)
CPT/HCPCS: 99213

== ENCOUNTER → 2024-03-14 14:10 | Outpatient (BNVA) | payer BC, SELFPAY | PROVIDERS: PCP Internal Medicine; Visit Provider Advanced Practice Midwife ==

== ENCOUNTER 2024-04-10 08:11 | Outpatient (AMB) | payer BC, SELFPAY ==
--- NOTE | 2024-04-10 08:49 | AM.OFFWIN_ITS ---
Intake Vital Signs 04/10/24 08:53 Height 5 ft 3 in Weight 114 lb 2 oz BMI 20.2 BP 112/78 Blood Pressure Location Lt brachial Position Sitting Pulse 86 Pulse Source Pulse Oximeter Temp 98.6 F Temp Source Oral Pulse Oximetry (%) 98 Oxygen Delivery Method Room Air Intake Visit Reasons: EP Sore throat, fever Intake Note: Pt is here today for sore throat, pt states started Tuesday night. Patient Tobacco Use Status: Never used Tobacco Allergies amoxicillin [AMOXICILLIN] Allergy (Intermediate, Verified 04/10/24 08:54) RASH, hives Iodinated Contrast Media [Contrast Dye] Allergy (Intermediate, Verified 04/10/24 08:54) Hives, itching Do you need a note to return to daycare/school/sports/work: Yes HPI HPI Comments History of Present Illness Details Patient is a 29-year-old female in today for sick visit. She reports symptoms of body aches, sore throat x2 days. Denies fever, chest pain, numbness, vomiting, diarrhea. Patient has used [id number] Advil with mild effect. Patient reports she feels like her throat is swollen, has history of strep throat in the past and states that this feels the same. Will obtain in office rapid strep, will obtain URI swab. 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 Sexual orientation: Lesbian/Pete/Homosexual Gender identity: Female Cognitive needs: No Hearing needs: No Vision needs: Yes Female Reproductive History Menstrual Age of Menarche: 14 Review of Systems Const All systems reviewed & are unremarkable except as noted in HPI and below Denies chills, Denies fever(s) and Denies headache(s) ENT Denies dizziness, Denies otalgia, Denies headache(s) and Reports sore throat Card Denies chest pain and Denies dyspnea Resp Denies cough, Denies dyspnea and Denies wheezing GI Denies diarrhea and Denies vomiting Neuro Denies dizziness and Denies headache(s) Aller/Immun Denies wheezing Physical Exam Vital Signs: Last Vital Signs Temp 98.6 F 04/10/24 08:53 Pulse 86 04/10/24 08:53 BP 112/78 04/10/24 08:53 Pulse Ox 98 04/10/24 08:53 Oxygen Delivery Method Room Air 04/10/24 08:53 BMI result Body Mass Index 20.2 Vital signs reviewed and stable. Const Other: Appearance: Alert.? Oriented X3.? No acute distress.? Head: Normocephalic. Eyes: Sclera white. ENT: Pharynx erythema. + exudates on bilateral tonsils. Tonsils +2. TM intact and pearly carrillo. ? Neck: Normal inspection.? Neck supple.?Full ROM. CVS: Normal heart rate and rhythm.? Pulses normal.? Respiratory: No respiratory distress.? Breath sounds normal.? Neuro: Oriented X 3.? Results AMB Rapid Strep AMB Rapid Strep Negative Last Edit by Jelani Corbin CMA on 04/10/24 09 :15 Assessment & Plan Assessment & Plan (1) Strep pharyngitis: Comment: Clinical presentation is consistent with strep pharyngitis. Patient will be given azithromycin as she has allergy to amoxicillin. Patient has also been educated that she can utilize methods for symptomatic relief including salt water gargle, Tylenol and ibuprofen. Patient has been educated on signs of worsening symptoms and when to report back to the walk-in or when to present to the ED. Code(s): J02.0 - Streptococcal pharyngitis Plan: Will call back with URI swab results Plan Follow-up with PCP if problem does not resolve after course of antibiotics Orders: Orders SARS-CoV2/FLU/RSV Today J06.9 - Acute upper respiratory infection, unspecified AMB Rapid Strep Screen Today Z13.9 - Encounter for screening, unspecified Medications: New azithromycin 500 mg PO DAILY 3 tabs 0RF Coding Level of Care Code Est Pt Level 3 (12531) Diagnoses Strep pharyngitis J02.0 Time Spent (min) 22
[2024-04-10 08:53] VITALS: BP 112/78; PULSE 86; TEMP 37; O2SAT 98; BMI 20.2
== END 2024-04-10 09:29 | disposition home or self-care (01) ==
PROVIDERS: PCP Internal Medicine; Visit Provider Nurse Practitioner Primary Care
DX: J02.0 Streptococcal pharyngitis (principal); Z13.9 Encounter for screening, unspecified
CPT/HCPCS: 87880; 99213

== ENCOUNTER 2024-04-10 10:37 | Outpatient (REF) | payer BC, SELFPAY ==
[2024-04-10 11:27] LABS: Influenza A PCR NEGATIVE (Negative); Influenza B PCR NEGATIVE (Negative); Resp Syncy Virus RNA Qual PCR NEGATIVE (Negative); SARS COV2 PCR INHOUSE NEGATIVE (Negative)
== END 2024-04-10 10:38 | disposition home or self-care (01) ==
LOC: HO.LNP 10:37
PROVIDERS: Visit Provider Nurse Practitioner Primary Care
DX: Z13.9 Encounter for screening, unspecified (principal)
CPT/HCPCS: 0241U

== ENCOUNTER 2024-07-31 08:02 | Outpatient (AMB) | payer BC, SELFPAY ==
[2024-07-31 08:03] VITALS: BP 104/66; PULSE 90; TEMP 37.2; O2SAT 99; BMI 19.5
--- NOTE | 2024-07-31 08:03 | AM.OFFWIN_ITS ---
Intake Vital Signs 07/31/24 08:03 Height 5 ft 3 in Weight 110 lb BMI 19.5 BP 104/66 Blood Pressure Location Rt brachial Position Sitting Pulse 90 Pulse Source Pulse Oximeter Temp 98.9 F Temp Source Oral Pulse Oximetry (%) 99 Oxygen Delivery Method Room Air Intake Visit Reasons: EP-step throat Intake Note: pt c/o sore throat. ? Strep. Started yesterday Patient Tobacco Use Status: Never used Tobacco Allergies amoxicillin [AMOXICILLIN] Allergy (Intermediate, Verified 07/31/24 08:09) RASH, hives Iodinated Contrast Media [Contrast Dye] Allergy (Intermediate, Verified 07/31/24 08:09) Hives, itching Do you need a note to return to daycare/school/sports/work: Yes HPI HPI Comments History of Present Illness Details Patient is a 29-year-old female complaining of 2 days of a sore throat, body aches, nausea but no vomiting, fever with a T-max of 101 degrees, fatigue and she starting to feel a little cough, on. She denies any sick contacts at home but states that a lot of people at her office or COVID positive. She also has a history of untreated strep pharyngitis and tells me that the rapid strep so usually negative and that she needs a culture to show it. She also states she has an autoimmune disease because of an undiagnosed strep as a child. She states she has been taking Tylenol and Motrin with relief of her fevers and body aches. 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 Sexual orientation: Lesbian/Pete/Homosexual Gender identity: Female Cognitive needs: No Hearing needs: No Vision needs: Yes Female Reproductive History Menstrual Age of Menarche: 14 Review of Systems Const All systems reviewed & are unremarkable except as noted in HPI and below Physical Exam Vital Signs: Last Vital Signs Temp 98.9 F 07/31/24 08:03 Pulse 90 07/31/24 08:03 BP 104/66 07/31/24 08:03 Pulse Ox 99 07/31/24 08:03 Oxygen Delivery Method Room Air 07/31/24 08:03 BMI result Body Mass Index 19.5 Const General: cooperative, healthy appearing, comfortable and no acute distress Orientation/consciousness: patient oriented x3 Limitations: no limitations HEENT Head: Yes normal to inspection Ears: hearing grossly normal bilaterally, external ears normal and TM's normal bilaterally General nose exam: Normal external nose present, Normal nares present and No nasal discharge present Face and sinus: Yes normal facial exam and Yes sinuses nontender Mouth: Normal oral and palatal mucosa present and moist mucous membranes Throat: Yes tonsils normal, Yes uvula midline and Yes posterior oropharynx abnormal (Erythema, small area of whiteness but no true exudate) Eyes General: appearance normal, both eyes and all related structures Neck Neck: Yes normal visual inspection Resp Effort & Inspection: normal respiratory effort, able to speak in complete sentences, Actively coughing, no respiratory distress, not tachypneic, no tripod positioning and no use of accessory muscles Auscultation: clear to auscultation bilaterally Cardio Rate: regular rate Rhythm: regular rhythm Heart sounds: normal S1 and S2 Skin General skin exam: no rashes or lesions noted Neuro General: patient oriented x3 Extrem General: Yes normal to inspection and Yes no clubbing, cyanosis or edema Results AMB Rapid Strep AMB Rapid Strep Negative Last Edit by NEGRA Parson on 07/31/24 08:24 Results Reviewed Results Reviewed: Laboratory Last Values Strep Scn Rapid Clinic Negative 07/31/24 08:23 Assessment & Plan Assessment & Plan (1) Upper respiratory tract infection: Code(s): J06.9 - Acute upper respiratory infection, unspecified Plan: Rapid strep negative in office, sent flu COVID and RSV as well as a strep culture. We will treat based on results of those tests. Recommended she use [id number] medications to treat her symptoms. Plan See above Orders: Orders AMB Rapid Strep Screen Today Z13.9 - Encounter for screening, unspecified SARS-CoV2/FLU/RSV Today J06.9 - Acute upper respiratory infection, unspecified Throat Culture Today J06.9 - Acute upper respiratory infection, unspecified Coding Level of Care Code Est Pt Level 4 (06258) Diagnoses Upper respiratory tract infection J06.9
== END 2024-07-31 09:01 | disposition home or self-care (01) ==
PROVIDERS: PCP Internal Medicine; Visit Provider Physician Assistant
DX: Z13.9 Encounter for screening, unspecified (principal); J06.9 Acute upper respiratory infection, unspecified

== ENCOUNTER 2024-07-31 08:02 | Outpatient (REF) | payer BC, SELFPAY ==
[2024-07-31 11:40] LABS: Influenza A PCR NEGATIVE (Negative); Influenza B PCR NEGATIVE (Negative); Resp Syncy Virus RNA Qual PCR NEGATIVE (Negative); SARS COV2 PCR INHOUSE POSITIVE (Negative)
== END 2024-07-31 08:03 | disposition home or self-care (01) ==
LOC: HO.LAB 08:02
PROVIDERS: PCP Internal Medicine; Visit Provider Physician Assistant
DX: J06.9 Acute upper respiratory infection, unspecified (principal)
CPT/HCPCS: 0241U; 87070; 87147; 87880

== ENCOUNTER 2024-08-31 10:52 | Outpatient (AMB) | payer BC, SELFPAY ==
--- NOTE | 2024-08-31 11:06 | AM.OFFWIN_ITS ---
Intake Vital Signs 08/31/24 11:08 Height 5 ft 3 in Weight 112 lb BMI 19.8 BP 98/64 Blood Pressure Location Rt brachial Position Sitting Pulse 82 Pulse Source Pulse Oximeter Pulse Oximetry (%) 98 Oxygen Delivery Method Room Air Intake Visit Reasons: EP-rt shoulder pain Intake Note: Patient here for right shoulder pain, collar bone and up the neck. Denies any known injuries. Patient Tobacco Use Status: Never used Tobacco Allergies amoxicillin [AMOXICILLIN] Allergy (Intermediate, Verified 08/31/24 11:08) RASH, hives Iodinated Contrast Media [Contrast Dye] Allergy (Intermediate, Verified 08/31/24 11:08) Hives, itching Do you need a note to return to daycare/school/sports/work: No HPI HPI Comments History of Present Illness Details This is a 29-year-old female who presented to the walk-in clinic complaining of acute on chronic right shoulder pain. Patient states she has had chronic right shoulder pain for many years and has been through physical therapy multiple times in the past. She has never had any imaging of the right shoulder. She states she started to develop worsening right shoulder pain approximately 2 or 3 days ago. She states this worsening shoulder pain started after working out her shoulders/chest in the gym. She states the pain does occasionally radiate into the right side of her neck and into the right side of her collarbone. She states that most range of motion worsens the pain. She denies any numbness/weakness/paresthesias radiating into her arm. She denies any posterior neck pain or neck trauma/injury. 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 Sexual orientation: Lesbian/Pete/Homosexual Gender identity: Female Cognitive needs: No Hearing needs: No Vision needs: Yes Female Reproductive History Menstrual Age of Menarche: 14 Review of Systems Const All systems reviewed & are unremarkable except as noted in HPI and below Reports no additional complaints Eyes Reports no additional complaints ENT Reports no additional complaints Card Reports no additional complaints Resp Reports no additional complaints GI Reports no additional complaints Reports no additional complaints Musc Reports no additional complaints Skin/Breast Reports system reviewed and no additional complaints, except as documented Neuro Reports no additional complaints Psych Reports no additional complaints Endo Reports no additional complaints Carlos/Lymph Reports no additional complaints Aller/Immun Reports no additional complaints Physical Exam Vital Signs: Last Vital Signs Pulse 82 08/31/24 11:08 BP 98/64 08/31/24 11:08 Pulse Ox 98 08/31/24 11:08 Oxygen Delivery Method Room Air 08/31/24 11:08 BMI result Body Mass Index 19.8 Const Other: Vital signs reviewed. Constitutional: Non-toxic appearing. No acute distress. Well-developed and well-nourished. HEENT: Normocephalic and atraumatic. Skin: Warm and dry. No rashes or lesions noted. Neck: Full and painless range of motion. No cervical lymphadenopathy. Cardio: Regular rate. No lower extremity edema. No JVD. Pulmonary: No respiratory distress. No accessory muscle usage. Musculoskeletal: There is diffuse tenderness to palpation of the right shoulder anteriorly and superiorly without focal bony tenderness to palpation. There is increased pain with active forward flexion, abduction, extension, and internal/external rotation. Neuro: Alert and oriented x4. Cranial nerves 2-12 grossly intact. No focal deficits appreciated. Psych: Normal mood and affect. Assessment & Plan Assessment & Plan (1) Right shoulder pain: Code(s): M25.511 - Pain in right shoulder Qualifiers: Chronicity: unspecified Qualified Code(s): M25.511 - Pain in right shoulder Plan: This is a 29-year-old female who presented to the walk-in clinic complaining of acute on chronic right shoulder pain with radiation into her neck and clavicle. Patient states her acute on chronic pain started after working out her shoulders in the gym. She has diffuse tenderness to palpation without focal bony tenderness to palpation and painful range of motion of the right shoulder in all planes. An x-ray of the right shoulder was obtained, which was negative for acute fracture/dislocation; however, the glenohumeral joint appeared slightly narrowed so I wonder if she has some sort of impingement syndrome. I recommended supportive management including rest/activity modification, ice/heat to the area, PO ibuprofen 800 mg 3 times daily, and PO acetominophen 650 mg every 6 hours as needed for breakthrough pain. Patient was also given a prescription for PO cyclobenzaprine 5 mg 3 times daily as needed for muscle spasms. Patient was given an ambulatory referral for physical therapy. Patient was advised to follow-up here or proceed to the emergency room if she were to develop persistent or worsening symptoms. Patient verbalized understanding and is agreeable with the plan. Orders: Orders XR shoulder RT min 2V Today M25.511 - Pain in right shoulder PT Evaluation and Treatment Today G89.29 - Other chronic pain, M25.511 - Pain in right shoulder Medications: New cyclobenzaprine 5 mg PO TID PRN 14 tabs 0RF muscle spasm ibuprofen 800 mg PO TID 21 tabs 0RF Coding Level of Care Code Est Pt Level 3 (44428) Diagnoses Right shoulder pain, unspecified chronicity M25.511 Chronicity: unspecified
[2024-08-31 11:08] VITALS: BP 98/64; PULSE 82; O2SAT 98; BMI 19.8
== END 2024-08-31 11:50 | disposition home or self-care (01) ==
PROVIDERS: PCP Internal Medicine; Visit Provider Physician Assistant Medical
DX: M25.511 Pain in right shoulder (principal)

== ENCOUNTER → 2024-08-31 10:52 | Outpatient (BNVA) | payer BC, SELFPAY | PROVIDERS: PCP Internal Medicine; Visit Provider Physician Assistant Medical ==

== ENCOUNTER 2024-08-31 11:21 | Outpatient (REF) | payer BC, SELFPAY | END 2024-08-31 11:22 | disposition home or self-care (01) | LOC: HO.HMGCX 11:21 | PROVIDERS: PCP Internal Medicine; Visit Provider Physician Assistant Medical | DX: M25.511 Pain in right shoulder (principal); G89.29 Other chronic pain | CPT/HCPCS: 73030 ==

== ENCOUNTER 2024-11-20 08:01 | Outpatient (AMB) | payer OTHER, SELFPAY ==
--- OUTSIDE RECORDS SUMMARY | 2024-11-20 08:08 | XMS_ITS ---
Author Organization [address] [id number] Care Team Providers [facility] [employer] On [employer] Director Name Role Phone Deanna Tomas Unavailable [phone] Encounters Encounter Location Date Provider Diagnosis [address] [id number] 04/09/2024 Deanna Tomas Plan Of Treatment No Information Progress Notes * Scot RAMANB:1995 ( 29 yo F)Acc No.[id number]:04/09/2024 Patient:?Yakelin RAMAN :1995???Age:29 Y???Sex:Female Address:[address] [place], [address] * true * Date:? Generated for Printi tania/Ramirog/eTransmitting on:?11/20/2024 08:07 AM EST
--- OUTSIDE RECORDS SUMMARY | 2024-11-20 08:08 | XMS_ITS | Patient Health Record ---
Author Organization [facility] Address [address], [place] [id number] Care Team Providers Care Gang Boss Name Role Phone Deanna Tomas Unavailable [phone] Reason For Referral No Information Encounters Encounter Location Date Provider Diagnosis [address] [id number] 04/09/2024 Deanna Tomas Plan Of Treatment No Information Insurance Providers Payer Name Payer Address Payer Phone Subscriber Number Group Number Insured Name Patient Relationship to Insured Coverage Start Date Coverage End Date [facility] [employer] [address] [place], [place] [id number] Yakelin Solomon Self - patient is the insured
[2024-11-20 08:11] VITALS: BP 90/60; PULSE 84; O2SAT 99
--- NOTE | 2024-11-20 08:11 | AM.OFFWIN_ITS ---
Intake Vital Signs 11/20/24 08:11 Weight 112 lb BP 90/60 Blood Pressure Location Rt brachial Position Sitting Pulse 84 Pulse Source Pulse Oximeter Pulse Oximetry (%) 99 Oxygen Delivery Method Room Air Intake Visit Reasons: EP neck pain Intake Note: Patient here for neck pain that she woke up yesterday morning. Patient Tobacco Use Status: Never used Tobacco Allergies amoxicillin [AMOXICILLIN] Allergy (Intermediate, Verified 11/20/24 08:13) RASH, hives Iodinated Contrast Media [Contrast Dye] Allergy (Intermediate, Verified 11/20/24 08:13) Hives, itching Do you need a note to return to daycare/school/sports/work: Yes HPI HPI Comments History of Present Illness Details History of Present Illness - The patient is a 29-year-old female pr esenting with neck pain. - Neck pain onset occurred the previous morning, with no known inciting activity besides typical gym activity the prior evening. - Pain character described as sharp and crampy, beginning from the shoulder blades and traveling upwards into the head. - Movements such as turning the neck and bending the chin to chest exacerbate discomfort. - Existing intervention with ibuprofen p rovided minimal relief. - Pain extended to the collarbone and ch est area with noticeable effect when breathing. - Physical examination suggested tendern ess resembling bruising without signs of spinal tenderness. - No fever, cough, or other symptoms not ed. - The patient denies changes in sleeping habits or use of new bedding materials or pillows. Physical Exam General: Cooperative, healthy appearing, comfortable, no acute distress and well developed Orientation: Patient oriented x3 Limitations: none Head: Normal to inspection Ears: Hearing grossly normal bilaterally Nose: Normal external nose present Face and sinus: Normal facial exam Eyes: Appearance normal, both eyes and all related structures Neck: Painful with movement, full ROM, no visible swelling Respiratory: Normal respiratory effort, pain noted with deep breathing, able to speak in complete sentences. Skin: No rashes or lesions noted Neuro: Patient oriented x3 Extremities: Normal to inspection back/spine: as below [facility] Medical History PANDAS (pediatric autoimmune neuropsychiatric disease associated with streptococcal infection) Murmur Raynauds disease Surgical History Hx of endoscopy Hx of wisdom tooth extraction Family History Other Mental health disorder Substance use disorder Social History Housing: Apartment Alcohol intake: never Patient Tobacco Use Status: Never used Tobacco e-Cigarette/Vaping Use: Never Used Current occupational status: employed 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 Sexual orientation: Lesbian/Pete/Homosexual Gender identity: Female Cognitive needs: No Hearing needs: No Vision needs: Yes Female Reproductive History Menstrual Age of Menarche: 14 Review of Systems Const All systems reviewed & are unremarkable except as noted in HPI and below Physical Exam Vital Signs: Last Vital Signs Pulse 84 11/20/24 08:11 BP 90/60 11/20/24 08:11 Pulse Ox 99 11/20/24 08:11 Oxygen Delivery Method Room Air 11/20/24 08:11 Back/Spine/Pelvis Cervical Spine: cervical ROM normal (albeit moving slowly as with some pain), cervical muscular tenderness and No Cervical spine tenderness Thoracic/Lumbar Spine: thoraco-lumbar ROM normal, No paraspinal muscle tenderness, No thoracic spinal tenderness and No lumbar spinal tenderness Assessment & Plan Assessment & Plan (1) Neck pain: Code(s): M54.2 - Cervicalgia Plan: Plan The treatment plan for the patient's acute neck pain, likely due to musculoskeletal spasm from recent physical exertion, includes the use of naproxen twice daily. Additionally, cyclobenzaprine will be administered to alleviate any muscle spasms, with cautionary advice against alcohol consumption and driving while under its influence. Application of heat and ice is recommended to ascertain their efficacy in providing pain relief. The patient should abstain from strenuous upper body activities to avoid exacerbation. Continuation of these measures is recommended over the next few days, with the advice of consulting Dr. Knight if symptoms persist beyond the current week, although immediate imaging is not deemed necessary at this time. Patient was informed and verbally consented to the use of an ambient scribe for clinic note documentation during this visit. Medications: New cyclobenzaprine 5 mg PO Q8H PRN 15 tabs 0RF Muscle Spasm naproxen 500 mg PO Q12H PRN 20 tabs 0RF pain Coding Level of Care Code Est Pt Level 3 (21451) Diagnoses Neck pain M54.2
== END 2024-11-20 08:29 | disposition home or self-care (01) ==
PROVIDERS: PCP Internal Medicine; Visit Provider Physician Assistant
DX: M54.2 Cervicalgia (principal)

== ENCOUNTER 2024-11-21 16:49 | Emergency (ER) | payer OTHER, SELFPAY ==
[2024-11-21 16:54] VITALS: BP 139/65; PULSE 93; RESP 18; TEMP 37.2; O2SAT 100; BMI 19.6
--- NOTE | 2024-11-21 21:37 | ED_ITS ---
HPI - Neck Pain/Injury General Chief Complaint: Neck Pain/Injury Stated Complaint: Neck pain Time Seen by Provider: 11/21/24 21:34 Source: patient Mode of arrival: ambulatory Limitations: no limitations History of Present Illness ED Provider: Dr. Trip Santana HPI Narrative: 29-year-old female history of Arnold, rheumatism, GERD, psoriasis, dumping syndrome, PANDAS who presents emergency department for evaluation of neck pain. The patient states that 3 days prior to evaluation she woke up in the morning with neck pain. She states the pain is a stiffness in both sides of her neck and radiates to the base of her skull. She states that the pain is 8/10 at its worst in his worse with movement. The pain does radiate to both shoulders but does not go down her arms. She was had no numbness or weakness of her extremities. She had no fever or chills. She states she has developed a headache along with the neck pain. The patient was seen yesterday at an urgent care clinic and started on naproxen and Flexeril. She states that this is only mildly improved her pain but he was not improved her stiffness. Patient states that she has had issues with joint pain and has had a rh eumatology workup without getting a clear diagnosis for her symptoms. I did review the rheumatology note by Dr. Adrienne Cisneros on 05/12/2021. Patient did have a rheumatologic workup which was negative but she was diagnosed with Raynaud syndrome and she also had a history of PANDAS. Related Data Home Medications ?Medication ?Instructions ?Recorded ?Confirmed loratadine 10 mg tablet (Claritin) 10 mg PO DAILY 01/21/21 02/01/24 glutamine 100 % oral powder ea PO 07/31/24 lactobacillus combination no.4 3 3,000 mmu cells PO DAILY 07/31/24 billion cell capsule (Probiotic) Previous Rx's ?Medication ?Instructions ?Recorded fluocinolone 0.01 % scalp oil and 1 ea topical NEEDED PRN Itching 04/24/24 shower cap #118.28 mL cyclobenzaprine 5 mg tablet 5 mg PO TID PRN muscle spasm #14 08/31/24 tabs ibuprofen 800 mg tablet 800 mg PO TID #21 tabs 08/31/24 cyclobenzaprine 5 mg tablet 5 mg PO Q8H PRN Muscle Spasm #15 01/14/25 tabs naproxen 500 mg tablet 500 mg PO Q12H PRN pain #20 tabs 11/20/24 prednisone 20 mg tablet 40 mg (2 x 20 mg) PO DAILY 5 days 11/21/24 #10 tabs Allergies Allergy/AdvReac Type Severity Reaction Status Date / Time amoxicillin [AMOXICILLIN] Allergy Intermediate RASH, hives Verified 11/21/24 16:57 Iodinated Contrast Media Allergy Intermediate Hives, Verified 11/21/24 16:57 [Contrast Dye] itching Review of Systems Review of Systems: Yes all other systems are reviewed and are negative [facility] Past Medical History [facility] Narrative: Social history: She denies tobacco, alcohol and drug use. 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 Exam: General: Awake, alert in no distress Head: Normocephalic, atraumatic Neck: Patient does have tenderness palpation of her cervical spine and her upper thoracic spine, she has minimal tenderness palpation of her trapezius muscles bilaterally but has limited range of motion secondary to spasm of her neck muscles. There is no erythema increased warmth or lesions of the skin over her neck. Neuro: Awake, alert, oriented, pupils were equal round reactive to light, normal speech, cranial nerves intact, moves all extremities symmetrically with good strength against resistance Psych: Pleasant, cooperative Medical Decision Making Medical Decision Making MDM Narrative: 29-year-old female history of Arnold, rheumatism, GERD, psoriasis, dumping syndrome, PANDAS who presents emergency department for evaluation of neck pain x3 days. Patient reports no injury and woke up with the pain 3 days prior, she was seen at an urgent care 2 days prior and started on naproxen and Flexeril with no relief for pain. Patient had no concerning systemic symptoms. Vital signs were normal. Examination did reveal tenderness palpation of the trapezius muscles and cervical and upper thoracic spine with no localizing point tenderness. Patient had limited range of motion of her neck secondary to spasm of her trapezius muscles. Differential diagnosis: ?Includes but is not limited to cervical muscle sprain, cervical muscle strain, disc disease Course: Patient was examination is consistent with musculoskeletal strain and spasm of her cervical muscles and I did discuss this with the patient. At this time I do not think that the patient needs any blood work or imaging studies. Patient was advised to continue taking the naproxen and Flexeril for 2 more days. Told the patient if the naproxen is not working then she should stop the medication and start prednisone 40 mg once a day for 5 days. She was also advised to take Tylenol 1000 mg 3 times a day as needed for pain. Patient was advised to use ice and heat on her neck muscles. I did offer your the patient prescription medications for her pain but she declined at this time. Patient asked about seeing a chiropractor and I advised her against that at this time since she was having too much pain and spasm or muscles. She was given printed and verbal in structions and discharged home. Admission/Observation Consideration of admission/observation: Escalation of care including admission/observation considered (No) Prescription Management I considered prescription management with: Pain Medication (Prednisone) Discharge Plan Discharge Clinical Impression: Acute strain of neck muscle Patient Disposition: Home, Self-Care Instructions: Cervical Strain (ED) Additional Instructions: Your exam is consistent with spasm/strain of your neck muscles. Continue taking the naproxen as prescribed by the urgent care clinic for 2 more days. If this is not helping your pain after 2 days then stopped naproxen and take prednisone 20 mg pills, 2 pills once a day for 5 days. While you ?are taking prednisone, do not take any NSAIDs (Motrin, Advil, ibuprofen, Aleve, naproxen). You can also take Tylenol (acetaminophen) 500 mg pills, 2 pills every 6 hours as needed for pain. Continue taking the Flexeril (cyclobenzaprine) as prescribed by the urgent care clinic. Use ice for 15 minutes and then 1 hour later use a heating pad on low for 15 minutes. Do this 4 to 6 times a day to help reduce the pain and spasm in your neck. Follow-up with your doctor in 2 days. Please return to the emergency department if your symptoms get worse or if you develop any symptoms that are concerning to you. Prescriptions: New prednisone 20 mg tablet 40 mg PO DAILY 5 Days Qty: 10 0RF No Action fluocinolone and shower cap 0.01 % oil 1 ea topical NEEDED PRN (Reason: Itching) Qty: 118.28 0RF loratadine [Claritin] 10 mg tablet 10 mg PO DAILY glutamine 100 % powder PO Probiotic 3 billion cell capsule 3,000 mmu cells PO DAILY Rx Instructions: administer with a meal cyclobenzaprine 5 mg tablet 5 mg PO TID PRN (Reason: muscle spasm) Qty: 14 0RF ibuprofen 800 mg tablet 800 mg PO TID Qty: 21 0RF naproxen 500 mg tablet 500 mg PO Q12H PRN (Reason: pain) Qty: 20 0RF cyclobenzaprine 5 mg tablet 5 mg PO Q8H PRN (Reason: Muscle Spasm) Qty: 15 0RF Print Language: Bruneian
[2024-11-21 22:29] VITALS: BP 139/65; PULSE 93; RESP 18; TEMP 37.2; O2SAT 100
== END 2024-11-21 22:30 | disposition home or self-care (01) ==
PROVIDERS: Emergency Provider Emergency Medicine Emergency Medical Services; PCP Internal Medicine
DX: S16.1XXA Strain of muscle, fascia and tendon at neck level, initial encounter (principal); X58.XXXA Exposure to other specified factors, initial encounter; Y93.9 Activity, unspecified; Y92.9 Unspecified place or not applicable; Y99.8 Other external cause status
CPT/HCPCS: 99282; 99283

== ENCOUNTER 2024-12-03 07:00 | Outpatient (RCR) | payer OTHER, SELFPAY ==
--- NOTE | 2024-10-02 07:51 | MHC.PT.EP ---
[facility] [place] Office [place] [facility] [place] Office [address] [phone] F: [phone] F: [phone] F: [phone] F: [phone] Physical Therapy Plan of Care Date of Evaluation: 10/02/24 Date of Surgery: Diagnosis: pain in R shoulder Assessment: Patient is a 29 year old R handed female who presents with s/s consistent with R shoulder pain. 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 Patient past medical history includes recurring R shoulder pain. Current impairments include pain, posture, ROM, strength, activity tolerance and functional mobility. Functional limitations include decreased ability to reach, sleep, lift, push, dress, pull and exercise. Patient is motivated with good rehab potential. Skilled PT will address impairments and functional limitations in order to achieve goals. Frequency and Duration: The patient will be seen 1x/week for 5 weeks Short Term Goals: I with HEP -2 weeks AROM full and pain free - 2 weeks min tight b/l pec - 3 weeks pain free sleep - 3 weeks Usp Goals: Strength 4+/5 grossly -5 weeks Max pain with ADLs and exercise - 5 weeks SPADI 12/130 - 5 weeks Treatment Plan: Modalities to reduce pain, spasms and effusion. Manual therapy to restore motion and function. Therapeutic exercise to improve strength and flexibility. Neuromuscular re-education for posture and balance. Therapeutic activities to return to functional activities of daily living. Electronically signed by: Garfield Downing, PT Please sign and return to therapist. Thank you for your referral.
--- NOTE | 2024-12-03 11:37 | MHC.PT.EP ---
[facility] [place] Office [place] Office [place] Office [address] [phone] F: [phone] F: [phone] F: [phone] F: [phone] Physical Therapy Plan of Care Date of Evaluation: 10/02/24 Date of Surgery: Diagnosis: pain in R shoulder Assessment: Patient is a 29 year old R handed female who presents with s/s consistent with R shoulder pain. 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 Patient past medical history includes recurring R shoulder pain. Current impairments include pain, posture, ROM, strength, activity tolerance and functional mobility. Functional limitations include decreased ability to reach, sleep, lift, push, dress, pull and exercise. Patient is motivated with good rehab potential. Skilled PT will address impairments and functional limitations in order to achieve goals. Frequency and Duration: The patient will be seen 1x/week for 5 weeks Short Term Goals: I with HEP -2 weeks AROM full and pain free - 2 weeks min tight b/l pec - 3 weeks pain free sleep - 3 weeks Mcfp Goals: Strength 4+/5 grossly -5 weeks Max pain with ADLs and exercise - 5 weeks SPADI 12/130 - 5 weeks Treatment Plan: Modalities to reduce pain, spasms and effusion. Manual therapy to restore motion and function. Therapeutic exercise to improve strength and flexibility. Neuromuscular re-education for posture and balance. Therapeutic activities to return to functional activities of daily living. Electronically signed by: Garfield Downing, PT Please sign and return to therapist. Thank you for your referral.
--- NOTE | 2025-01-30 13:37 | MHC.PT.DC ---
[facility] [place] Office [place] Office [place] Office [address] Eduardo Velázquez [address] [phone] F: [phone] F: [phone] F: [phone] F: [phone] Physical Therapy Discharge Report Diagnosis: pain in R shoulder Date of Surgery: Date of Evaluation: 10/02/24 Date of Discharge: 12/03/24 Treatments to Date: 8 Cancellations to Date: No Shows to Date: Discharge Status: Improved Function Independent with HEP Recommend MD Follow-up Discharge Summary: 12/03/24: Pt has sustained all progress made on shoulder and current s/s seem to be more related to cervical origin. We discussed this at length and I encouraged her to follow up with MD to pursue referral for neck pain should she want to go that route. She still would likely benefit from further imaging on shoulder to discern best management moving forward and to rule out pathologies requiring less conservative measures. We will d/c to HEP at this time. 11/30/24: Pt has been continuing at home and in the gym with HEP but has a sudden onset of shoulder and UT pain 2 weeks ago that she has not been able to shake. She returned today and we addressed with with manual intervention and gentle stretching. We will assess response and hopefully encourage patient to continue with HEP in a gentle way with a gradual progression. She will return for 1 more visit to recheck s/s. 11/06/24: I with HEP. AROM full and pain free. might tight b/l pec. Pain free sleep. Strength 4+5 grossly except elbow flexion 4/5, and pec major 4/5. clicking and popping still present at times. SPADI 5/130. Pt has improved but still with some residual impairment and functional limitations. We will d/c to HEP but also recommend further imaging as needed for residual popping/clicking in shoulder resulting in limitation with higher level activities. I will plan to leave chart open 30 days should any further needs arise or setbacks. 10/29/24: discussed plan, HEP, exercise routine. we will plan to do 1 more visit then d/c to HEP. 10/25/24: pt progressing well. strength and ROM improving. pain seems to be associated with bicep curls and push up activities. we discussed possible labral pathology. 10/23/24: pt has been feeling better overall with less pain and able to progress each visit. continue to progress as tolerated. 10/18/24: pt progressing well with skilled PT. no adverse reactions. continue to progress as tolerated. 10/16/24: pt progressing well still. continues to have some anterior pinching but improving overall with lesser degree of s/s and improved tolerance to activities. 10/09/24: pt progressing well. issued GTB and progressed cuff strength and stretching. continue to progress as tolerated. Patient is a 29 year old R handed female who presents with s/s consistent with R shoulder pain. 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 Patient past medical history includes recurring R shoulder pain. Current impairments include pain, posture, ROM, strength, activity tolerance and functional mobility. Functional limitations include decreased ability to reach, sleep, lift, push, dress, pull and exercise. Patient is motivated with good rehab potential. Skilled PT will address impairments and functional limitations in order to achieve goals. Electronically signed by: Garfield Downing, PT Please sign and return to therapist. Thank you for your referral.
== END 2025-01-30 13:38 | disposition home or self-care (01) ==
LOC: HO.PTCHIC 07:00
PROVIDERS: PCP Internal Medicine; Visit Provider Physician Assistant Medical
DX: M25.511 Pain in right shoulder (principal); G89.29 Other chronic pain
CPT/HCPCS: 97110; 97140; 97161

== ENCOUNTER 2024-12-04 14:52 | Outpatient (REF) | payer OTHER, SELFPAY ==
--- NOTE | ~2024-12-04 | XR_ITS ---
EXAMINATION: XR CERVICAL SPINE 2-3 VIEWS HISTORY: M54.2 - Cervicalgia COMPARISON: There are no prior studies for comparison. FINDINGS: AP and lateral views of the cervical spine are submitted. Osseous mineralization is normal. Seven cervical vertebral bodies are identified maintaining normal height and alignment without evidence of fracture or subluxation. The intervertebral disc spaces are preserved. The odontoid and lateral masses of C1 are intact. There is no prevertebral soft tissue swelling. XR/XR cervical spine 2V IMPRESSION: Unremarkable examination of the cervical spine. Electronically signed by: Blanco Franklin MD 12/06/2024 07:06 AM FIDEL
== END 2024-12-04 14:53 | disposition home or self-care (01) ==
LOC: HO.HMGCX 14:52
PROVIDERS: PCP Internal Medicine; Visit Provider Internal Medicine
DX: M54.2 Cervicalgia (principal)
CPT/HCPCS: 72040; 96127

== ENCOUNTER 2024-12-04 14:52 | Outpatient (AMB) | payer OTHER, SELFPAY ==
[2024-12-04 14:55] VITALS: BP 110/78; PULSE 88; RESP 16; TEMP 36.6; O2SAT 99; BMI 19.8
--- NOTE | 2024-12-04 14:55 | A.OFFPC_ITS ---
Vital Signs 12/04/24 14:55 Height 5 ft 3 in Weight 112 lb BMI 19.8 BP 110/78 Blood Pressure Location Rt brachial Position Sitting Respiration 16 Pulse 88 Pulse Source Pulse Oximeter Temp 97.8 F Temp Source Oral Pulse Oximetry (%) 99 Oxygen Delivery Method Room Air Intake Visit Reasons: Referral Req Allergies amoxicillin [AMOXICILLIN] Allergy (Intermediate, Verified 12/04/24 14:55) RASH, hives Iodinated Contrast Media [Contrast Dye] Allergy (Intermediate, Verified 12/04/24 14:55) Hives, itching Medication List - Last Reconciled 12/04/24 by Vannesa Knight MD fluocinolone and shower cap 0.01 % 1 ea topical NEEDED PRN glutamine 100% ea PO lactobacillus combination no.4 (Probiotic) 3,000 mmu cells PO DAILY loratadine (Claritin) 10 mg PO DAILY Tobacco use date assessed: 12/04/24 Dental Screening Dental Screen Date: 12/04/24 Did you have a dental visit in the last 12 months?: Yes Did you have a dental problem in the last 6 months where you did not have access to dental care?: No Was dental information given to patient?: Patient has dentist HPI Referral Req HPI Details - The patient is a 29-year-old female pr esenting with neck pain and stiffness. - Neck pain onset was three weeks ago, c haracterized by acute pain and stiffness, grading initially at 8/10. - The pain persists as a low-grade const ant sensation with aching, exacerbated by certain neck movements. - No improvement was noted with changes to sleeping positions or pillow thickness. - The patient has a history of recurrent shoulder pain improved at this point after having physical therapy - if reoccurs patient will get back to e for orthopedic referral Problem List - Cervical pain with suspected trapezius muscle strain - History of shoulder pain Patient Instructions - Proceed with the x-ray of the neck as ordered. - Schedule physical therapy sessions. Review of Systems - Musculoskeletal: Reports neck pain and stiffness with aching sensation extending between shoulder blades. Denies tingling or numbness in hands. - General: No fever no chills - Neurological: No headaches no dizziness - Ear nose throat: No sore throat no hearing difficulty no ear pain - Cardiovascular: No syncope, no chest pain, no palpitations - Gastrointestinal: No nausea vomiting or diarrhea - Endocrine: No polyuria polydipsia no heat intolerance - Genitourinary: No dysuria , no blood in urine Physical Exam General: No acute distress HEENT: No acute findings Neck: Stiffness and pain, 8/10 when pain is severe, range of motion full at this time tenderness more on the right side Respiratory system: Able to talk in full sentences, no audible wheeze Gastrointestinal: No pain Extremities: No new findings 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: Alert awake oriented x3 motor sensory intact Skin: Normal turgor PFSH Medical History PANDAS (pediatric autoimmune neuropsychiatric disease associated with streptococcal infection) Murmur Raynauds disease Surgical History Hx of endoscopy Hx of wisdom tooth extraction Family History Other Mental health disorder Substance use disorder Social History Housing: Apartment Alcohol intake: never Patient Tobacco Use Status: Never used Tobacco e-Cigarette/Vaping Use: Never Used Current occupational status: employed 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 1. Little interest or pleasure in doing things: not at all 2. Feeling down, depressed, or hopeless: not at all 3. Trouble falling or staying asleep, or sleeping too much: not at all 4. Feeling tired or having little energy: not at all 5. Poor appetite or overeating: not at all 6. Feeling bad about yourself - or that you are a failure or have let yourself or your family down: not at all 7. Trouble concentrating on things, such as reading the newspaper or watching television: not at all 8. Moving or speaking so slowly that other people could have noticed. Or the opposite - being so fidgety or restless that you have been moving around a lot more than usual: not at all 9. Thoughts that you would be better off or of hurting yourself in some way: not at all Total score: 0 Depression Screening Interpretation: Negative Depression Screening Done: Yes 70065 - PHQ-9 Billing: Yes Source: Developed by Drs. Blanco Preciado, Sylvia Zaman, Joseph Ku and colleagues, with an educational luna from [employer]. Thrive Questionnaire Date Thrive assessed: 12/03/24 I am a: Patient What is your living situation today?: I have a steady place to live Within the past 12 months, did the food you bought not last and you didn't have the money to get more?: Never true Within the past 12 months, did you worry whether your food would run out before you got money to buy more?: Never true Do you have trouble paying for medicines?: No Do you have trouble getting transportation to medical appointments?: No Do you have trouble paying your heating and electricity bill?: No Do you have trouble taking care of your child, family member or friend?: No Do you have trouble with day-to-day activities such as bathing, preparing meals, shopping, managing finances, etc.?: No Are you currently unemployed and looking for a job?: No Are you interested in more education?: No Please select the resources that you would like help with: None Currently or been in a relationship where the following occur: No concerns reported THRIVE Score: 0 AUDIT C Alcohol Use Questionnaire (AUDIT-C) 1. How often do you have a drink containing alcohol?: Never 2. How many drinks containing alcohol do you have on a typical day when you are drinking?: 1 or 2 3. How often do you have six or more drinks on one occasion?: Never Total Score: 0 Score Reviewed/Action Taken: Yes SKYE-7 AMB Questionnaire SKYE-7 Date SKYE - 7 assessed: 02/01/24 Feeling nervous, anxious, or on edge: 0 = Not at all Not being able to stop or control worryin = Not at all Worrying too much about different things: 0 = Not at all Trouble relaxin = Not at all Being so restless that it is hard to sit still: 0 = Not at all Becoming easily annoyed or irritable: 0 = Not at all Feeling afraid as if something awful might happen: 0 = Not at all Total SKYE-7 score (0-4 normal; 5-9 mild; 10-14 moderate; 15-21 severe): 0 Source: Developed by Drs. Blanco Preciado, Sylvia Zaman, Joseph Ku and colleagues, with an educational luna from [employer]. SKYE-7 Assessment Billing SKYE-7 Assessment Tool: SKYE-7 Assessment 41548 Physical exam (Primary Care) Vital Signs: Last Vital Signs Temp 97.8 F 12/04/24 14:55 Pulse 88 12/04/24 14:55 Resp 16 12/04/24 14:55 BP 110/78 12/04/24 14:55 Pulse Ox 99 12/04/24 14:55 Oxygen Delivery Method Room Air 12/04/24 14:55 BMI result Body Mass Index 19.8 Tobacco/Smoking Status: Tobacco use Status Tobacco use date assessed 12/04/24 12/04/24 14:57 Patient Tobacco Use Status Never used Tobacco 12/04/24 14:57 e-Cigarette/Vaping Use Never Used 12/04/24 14:57 PHQ-9: PHQ-9 Score PHQ-9: Total score 0 12/04/24 15:17 Depression Screening Interpretation: Negative Thrive Assessment: Date of Thrive Assessment Date Thrive assessed 12/03/24 12/04/24 14:57 Currently or been in a relationship where the following occur: No concerns reported Coding Level of Care Code Est Pt Level 3 (68784) Diagnoses Neck pain M54.2 Additional Codes PHQ-9 - 08356 - PHQ-9 Billing: Yes ([id number]) SKYE-7 Assessment Billing - SKYE-7 Assessment Tool: SKYE-7 Assessment 44047 ([id number]) Assessment & Plan Assessment & Plan (1) Neck pain: Code(s): M54.2 - Cervicalgia Category: Medical Plan - The patient is a 29-year-old female presenting with neck pain and stiffness. - Neck pain onset was three weeks ago, characterized by acute pain and stiffness, grading initially at 8/10. - The pain persists as a low-grade constant sensation with aching, exacerbated by certain neck movements. - No improvement was noted with changes to sleeping positions or pillow thickness. - The patient has a history of recurrent shoulder pain improved at this point after having physical therapy - if reoccurs patient will get back to me for orthopedic referral Problem List - Cervical pain with suspected trapezius muscle strain - History of shoulder pain Patient Instructions - Proceed with the x-ray of the neck as ordered. - Schedule physical therapy sessions. Orders: Orders XR cervical spine 2V Today M54.2 - Cervicalgia PT Evaluation and Treatment Today M54.2 - Cervicalgia
--- OUTSIDE RECORDS SUMMARY | 2024-12-04 15:49 | XMS_ITS ---
Author Organization [address] [id number] Care Team Providers Care Sea Air Land Officer Name Role Phone Deanna Tomas Unavailable [phone] Encounters Encounter Location Date Provider Diagnosis [address] [id number] 04/09/2024 Deanna Tomas Plan Of Treatment No Information Progress Notes * Scot RAMANB:1995 ( 29 yo F)Acc No.[id number]:04/09/2024 Patient:?Yakelin RAMAN :1995???Age:29 Y???Sex:Female Address:[address] [place], [address] * true * Date:? Generated for Printi tania/Famanjug/eTransmitting on:?12/04/2024 03:48 PM EST
--- OUTSIDE RECORDS SUMMARY | 2024-12-04 15:49 | XMS_ITS | Patient Health Record ---
Author Organization [facility] Address [address] [place], [place] [id number] Care Team Providers Care Auto Parts Manager Name Role Phone Deanna Tomas Unavailable [phone] Reason For Referral No Information Encounters Encounter Location Date Provider Diagnosis [address] [id number] 04/09/2024 Deanna Tomas Plan Of Treatment No Information Insurance Providers Payer Name Payer Address Payer Phone Subscriber Number Group Number Insured Name Patient Relationship to Insured Coverage Start Date Coverage End Date [facility] [employer] [address] [place], [place] [id number] Yakelin Solomon Self - patient is the insured
== END 2024-12-04 15:17 | disposition home or self-care (01) ==
PROVIDERS: PCP Internal Medicine; Visit Provider Internal Medicine
DX: M54.2 Cervicalgia (principal)

== ENCOUNTER → 2024-12-04 15:23 | Outpatient (BNV) | payer OTHER, SELFPAY | PROVIDERS: PCP Internal Medicine; Visit Provider Radiology Diagnostic Radiology | DX: M54.2 Cervicalgia (principal) | CPT/HCPCS: 72040 ==

== ENCOUNTER 2025-01-10 06:00 | Outpatient (RCR) | payer OTHER, SELFPAY ==
--- NOTE | 2024-12-13 13:22 | MHC.PT.EP ---
[facility] [place] Office [place] Office [place] Office [address] Velázquez [address] [phone] F: [phone] F: [phone] F: [phone] F: [phone] Physical Therapy Plan of Care Date of Evaluation: 12/13/24 Date of Surgery: Diagnosis: cervicalgia. Assessment: Patient is a 29 year old R handed female who presents with s/s consistent with cervicalgia, neck pain. She works with daily job demands including working at [employer]. Patient past medical history includes shoulder pain, PANDAS. Current impairments include pain, posture, ROM, strength, activity tolerance and functional mobility. Functional limitations include decreased ability to sleep, lift, carry, push, pull and perform chores around the house, exercise and rock climb. Patient is motivated with good rehab potential. Skilled PT will address impairments and functional limitations in order to achieve goals. Frequency and Duration: The patient will be seen 2x/week for 5 weeks Short Term Goals: I with HEP - 2 weeks AROM rotation WNL - 3 weeks TTP absent - 3 weeks Improved postural awareness - 3 weeks Senior Living Goals: NPDI 10% or less - 5 weeks Return to rock climbing and gym pain free - 5 weeks Able to sleep pain free - 5 weeks Full pain free flexion and ext AROM - 5 weeks Treatment Plan: Modalities to reduce pain, spasms and effusion. Manual therapy to restore motion and function. Therapeutic exercise to improve strength and flexibility. Neuromuscular re-education for posture and balance. Therapeutic activities to return to functional activities of daily living. Electronically signed by: Garfield Downing, PT Please sign and return to therapist. Thank you for your referral.
--- NOTE | 2025-01-25 09:02 | MHC.PT.DC ---
[facility] [place] Office [place] Office [place] Office [address] Eduardo Velázquez [address] [phone] F: [phone] F: [phone] F: [phone] F: [phone] Physical Therapy Discharge Report Diagnosis: cervicalgia. Date of Surgery: Date of Evaluation: 12/13/24 Date of Discharge: 01/25/25 Treatments to Date: 8 Cancellations to Date: No Shows to Date: Discharge Status: Improved Function Independent with HEP Discharge Summary: 01/10/25: pt progressed well. AROM rotation WNL b/l. I with HEP. TTP min. improved postural awareness and good attentiveness to mechanics. able to sleep pain free. pt will attempt HEP exclusively as work schedule has changed. to call back within 30 days if any setbacks. 01/07/25: continues to progress well with skilled PT. reduced s/s and progressing therex. 01/04/25: reduced ttp, reduced pain and improved function and ability to exercise at the gym. continuing to progress with strength and posture cautiously. 01/01/25: pt with reduced pain and improved quality of sleep. reduced tissue tension and improved activity tolerance. continue to progress as tolerated. 12/25/24: pt with apparent setback with incident when sleeping. R LS very tight and TTP. 12/21/24: pt progressing well overall. L rotation 62, R 57. continue to progress as tolerated. 12/18/24: pt with AROM rotation: L60, R 53. reduced tissue tension. reduced discomfort the last 2 days. progress posture. Patient is a 29 year old R handed female who presents with s/s consistent with cervicalgia, neck pain. 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 Patient past medical history includes shoulder pain, PANDAS. Current impairments include pain, posture, ROM, strength, activity tolerance and functional mobility. Functional limitations include decreased ability to sleep, lift, carry, push, pull and perform chores around the house, exercise and rock climb. Patient is motivated with good rehab potential. Skilled PT will address impairments and functional limitations in order to achieve goals. Electronically signed by: Garfield Downing, PT Please sign and return to therapist. Thank you for your referral.
== END 2025-01-25 09:03 | disposition home or self-care (01) ==
LOC: HO.PTCHIC 06:00
PROVIDERS: PCP Internal Medicine; Visit Provider Internal Medicine
DX: M54.2 Cervicalgia (principal)
CPT/HCPCS: 97110; 97140; 97161

== ENCOUNTER 2025-02-22 14:21 | Outpatient (AMB) | payer OTHER, SELFPAY ==
[2025-02-22 14:29] VITALS: BP 118/78; PULSE 86; O2SAT 98; BMI 20.4
--- NOTE | 2025-02-22 14:29 | A.OFFPC_ITS ---
Vital Signs 02/22/25 14:29 Height 5 ft 3 in Weight 115 lb 2 oz BMI 20.4 BP 118/78 Blood Pressure Location Lt brachial Position Sitting Pulse 86 Pulse Source Pulse Oximeter Pulse Oximetry (%) 98 Oxygen Delivery Method Room Air Intake Visit Reasons: annual PE Allergies amoxicillin [AMOXICILLIN] Allergy (Intermediate, Verified 02/22/25 14:31) RASH, hives Iodinated Contrast Media [Contrast Dye] Allergy (Intermediate, Verified 02/22/25 14:31) Hives, itching Medication List - Last Reconciled 02/22/25 by Vannesa Knight MD fluocinolone and shower cap 0.01 % 1 ea topical NEEDED PRN glutamine 100% ea PO lactobacillus combination no.4 (Probiotic) 3,000 mmu cells PO DAILY loratadine (Claritin) 10 mg PO DAILY Tobacco use date assessed: 02/22/25 Dental Screening Dental Screen Date: 02/22/25 Did you have a dental visit in the last 12 months?: Yes Did you have a dental problem in the last 6 months where you did not have access to dental care?: No Was dental information given to patient?: Patient has dentist HPI annual PE HPI Details Physical exam - The patient is a 29-year-old female pr esenting with a request for a dermatology referral for psoriasis treatment - The patient has a history of psoriasis primarily affecting the scalp, for which I had previously prescribed an oil. The oil has been effective for scalp symptoms. - Recently, the patient has experienced new symptoms consistent with eczema in the right ear, described as scaly and itchy. - The patient reports that the symptoms in the ear have been present for a few years but have not been previously evaluated by a fellmongering machine operator. - There is no previous dermatological ev aluation since the patient's relocation to [place]. Does not want to do labs, no other complaints OBGYN appointment coming up Health Maintenance - Recent lab tests conducted in October 2023. - Vitamin B12 levels were very high duri ng the last test, likely due to supplementation, which the patient has since discontinued. Patient Instructions - Use [id number] 1% hydrocortisone cream in the affected ear at night before bedtime. - Schedule a dermatology consultation at [facility] - Follow up for a routine OBGYN visit, a s previously canceled. Review of Systems - General: No fever no chills - Neurological: No headaches no dizzin ess - Ear nose throat: No sore throat no hearing difficulty no ear pain - Cardiovascular: No syncope, no chest pain, no palpitations - Gastrointestinal: No nausea vomiting or diarrhea - Endocrine: No polyuria polydipsia no heat intolerance - Genitourinary: No dysuria - Skin: No new complaints Physical Exam General: Cooperative, healthy appearing, comfortable, no acute distress Orientation: Patient oriented x3 Limitations: None Head: Normal to inspection Ears: Scaly and itches Nose: Normal external nose present Face and sinus: Normal facial exam Eyes: Appearance normal, extraocular movement intact pupils reactive Neck: Normal visual inspection and supple Respiratory: Normal respiratory effort and able to speak in complete sentences. Clear to auscultation, no stridor Cardiovascular: S1 and S2 RRR Breast exam through OBGYN GI: Normal to inspection. Soft to palpation and nontender Skin: Turgor normal, scaly rash external ear left more than right Neuro: Patient oriented x3, motor sensory intact, balance intact, tandem pass Extremities: Normal to inspection PFSH Medical History PANDAS (pediatric autoimmune neuropsychiatric disease associated with streptococcal infection) Murmur Raynauds disease Surgical History Hx of endoscopy Hx of wisdom tooth extraction Family History Other Mental health disorder Substance use disorder Social History Housing: Apartment Alcohol intake: never Patient Tobacco Use Status: Never used Tobacco e-Cigarette/Vaping Use: Never Used Current occupational status: employed 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 1. Little interest or pleasure in doing things: not at all 2. Feeling down, depressed, or hopeless: not at all 3. Trouble falling or staying asleep, or sleeping too much: not at all 4. Feeling tired or having little energy: not at all 5. Poor appetite or overeating: not at all 6. Feeling bad about yourself - or that you are a failure or have let yourself or your family down: not at all 7. Trouble concentrating on things, such as reading the newspaper or watching television: not at all 8. Moving or speaking so slowly that other people could have noticed. Or the opposite - being so fidgety or restless that you have been moving around a lot more than usual: not at all 9. Thoughts that you would be better off or of hurting yourself in some way: not at all Total score: 0 Depression Screening Interpretation: Negative Depression Screening Done: Yes 30895 - PHQ-9 Billing: Yes Source: Developed by Drs. Blanco Preciado, Sylvia Zaman, Joseph Ku and colleagues, with an educational luna from [employer]. Thrive Questionnaire Date Thrive assessed: 02/22/25 I am a: Patient What is your living situation today?: I have a steady place to live Within the past 12 months, did the food you bought not last and you didn't have the money to get more?: Never true Within the past 12 months, did you worry whether your food would run out before you got money to buy more?: Never true Do you have trouble paying for medicines?: No Do you have trouble getting transportation to medical appointments?: No Do you have trouble paying your heating and electricity bill?: No Do you have trouble taking care of your child, family member or friend?: No Do you have trouble with day-to-day activities such as bathing, preparing meals, shopping, managing finances, etc.?: No Are you currently unemployed and looking for a job?: No Are you interested in more education?: No Please select the resources that you would like help with: None Currently or been in a relationship where the following occur: No concerns reported THRIVE Score: 0 AUDIT C Alcohol Use Questionnaire (AUDIT-C) 1. How often do you have a drink containing alcohol?: Never 2. How many drinks containing alcohol do you have on a typical day when you are drinking?: 1 or 2 3. How often do you have six or more drinks on one occasion?: Never Total Score: 0 Score Reviewed/Action Taken: Yes SKYE-7 AMB Questionnaire SKYE-7 Date SKYE - 7 assessed: 02/22/25 Feeling nervous, anxious, or on edge: 0 = Not at all Not being able to stop or control worryin = Not at all Worrying too much about different things: 0 = Not at all Trouble relaxin = Not at all Being so restless that it is hard to sit still: 0 = Not at all Becoming easily annoyed or irritable: 0 = Not at all Feeling afraid as if something awful might happen: 0 = Not at all Total SKYE-7 score (0-4 normal; 5-9 mild; 10-14 moderate; 15-21 severe): 0 Source: Developed by Drs. Blanco Preciado, Sylvia Zaman, Joseph Ku and colleagues, with an educational luna from [employer]. SKYE-7 Assessment Billing SKYE-7 Assessment Tool: SKYE-7 Assessment 61573 Physical exam (Primary Care) Vital Signs: Last Vital Signs Pulse 86 02/22/25 14:29 BP 118/78 02/22/25 14:29 Pulse Ox 98 02/22/25 14:29 Oxygen Delivery Method Room Air 02/22/25 14:29 BMI result Body Mass Index 20.4 Tobacco/Smoking Status: Tobacco use Status Tobacco use date assessed 02/22/25 02/22/25 14:32 Patient Tobacco Use Status Never used Tobacco 02/22/25 14:32 e-Cigarette/Vaping Use Never Used 02/22/25 14:32 PHQ-9: PHQ-9 Score PHQ-9: Total score 0 02/22/25 14:32 Depression Screening Interpretation: Negative Thrive Assessment: Date of Thrive Assessment Date Thrive assessed 02/22/25 02/22/25 14:32 Currently or been in a relationship where the following occur: No concerns reported Coding Level of Care Code Est Pt Level 3 (73083) Est Pt Prev Care 18-39y(78973) Diagnoses Encounter for general adult medical examination with abnormal findings Z00.01 Eczema of both external ears H60.543 Laterality: bilateral Seborrheic dermatitis of scalp L21.9 Additional Codes SKYE-7 Assessment Billing - SKYE-7 Assessment Tool: SKYE-7 Assessment 49573 ([id number]) PHQ-9 - 10511 - PHQ-9 Billing: Yes ([id number]) Assessment & Plan Assessment & Plan (1) Encounter for general adult medical examination with abnormal findings: Code(s): Z00.01 - Encounter for general adult medical examination with abnormal findings Category: Medical (2) Eczema of external ear: Code(s): H60.549 - Acute eczematoid otitis externa, unspecified ear Category: Medical Qualifiers: Laterality: bilateral Qualified Code(s): H60.543 - Acute eczematoid otitis externa, bilateral (3) Seborrheic dermatitis of scalp: Code(s): L21.9 - Seborrheic dermatitis, unspecified Category: Medical Plan Physical exam - The patient is a 29-year-old female presenting with a request for a dermatology referral for psoriasis treatment - The patient has a history of psoriasis primarily affecting the scalp, for which I had previously prescribed an oil. The oil has been effective for scalp symptoms. - Recently, the patient has experienced new symptoms consistent with eczema in the right ear, described as scaly and itchy. - The patient reports that the symptoms in the ear have been present for a few years but have not been previously evaluated by a fellmongering machine operator. - There is no previous dermatological evaluation since the patient's relocation to [place]. Does not want to do labs, no other complaints OBGYN appointment coming up Health Maintenance - Recent lab tests conducted in October 2023. - Vitamin B12 levels were very high during the last test, likely due to supplementation, which the patient has since discontinued. Patient Instructions - Use [id number] 1% hydrocortisone cream in the affected ear at night before bedtime. - Schedule a dermatology consultation at [facility] - Follow up for a routine OBGYN visit, as previously canceled.
--- OUTSIDE RECORDS SUMMARY | 2025-02-22 14:41 | XMS_ITS | Patient Health Record ---
Author Organization [facility] Address [address], [place] [id number] Care Team Providers Care Integrated Marketing Manager Name Role Phone Deanna Tomas Unavailable [phone] Reason For Referral No Information Encounters Encounter Location Date Provider Diagnosis [address] [id number] 04/09/2024 Deanna Tomas Plan Of Treatment No Information Insurance Providers Payer Name Payer Address Payer Phone Subscriber Number Group Number Insured Name Patient Relationship to Insured Coverage Start Date Coverage End Date [facility] [employer] [address] [place], [place] [id number] [phone] [id number] Yakelin Solomon Self - patient is the insured
--- OUTSIDE RECORDS SUMMARY | 2025-02-22 14:41 | XMS_ITS ---
Author Name [facility] Organization Unknown Encounters Encounter Type Encounter Reason Primary Diagnosis Location Date Ambulatory [facility] 04/09/2024 Care Team Organization Name Specialty Phone Email Start Date End [facility] Deanna Tomas Primary Care 04/11/2024
--- OUTSIDE RECORDS SUMMARY | 2025-02-22 14:41 | XMS_ITS ---
Author Organization [address] [id number] Care Team Providers Care Event Producer Name Role Phone Deanna Tomas Unavailable [phone] Encounters Encounter Location Date Provider Diagnosis [address] [id number] 04/09/2024 Deanna Tomas Plan Of Treatment No Information Progress Notes * Scot RAMANB:1995 ( 29 yo F)Acc No.[id number]:04/09/2024 Patient:?Yakelin RAMAN :1995???Age:29 Y???Sex:Female Address:[address] [place], [address] * true * Date:? Generated for Printi ng/Famanjug/eTransmitting on:?02/22/2025 02:41 PM EDT
== END 2025-02-22 14:51 | disposition home or self-care (01) ==
PROVIDERS: PCP Internal Medicine; Visit Provider Internal Medicine
DX: Z00.01 Encounter for general adult medical examination with abnormal findings (principal); H60.543 Acute eczematoid otitis externa, bilateral; L21.9 Seborrheic dermatitis, unspecified

== ENCOUNTER → 2025-02-22 14:21 | Outpatient (BNVA) | payer OTHER, SELFPAY | PROVIDERS: PCP Internal Medicine; Visit Provider Internal Medicine | DX: Z00.01 Encounter for general adult medical examination with abnormal findings (principal); H60.543 Acute eczematoid otitis externa, bilateral; L21.9 Seborrheic dermatitis, unspecified | CPT/HCPCS: 96127; 99212; 99395 ==

== ENCOUNTER → 2025-07-01 21:01 | Outpatient (BNV) | payer OTHER, SELFPAY | PROVIDERS: PCP Internal Medicine; Visit Provider Radiology Diagnostic Radiology | DX: R07.9 Chest pain, unspecified (principal) | CPT/HCPCS: 71046 ==

== ENCOUNTER 2025-07-01 21:25 | Emergency (ER) | payer OTHER, SELFPAY ==
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
--- NOTE | ~2025-07-01 | XR_ITS ---
CLINICAL HISTORY: CP SOB 2 view chest x-ray. Comparison: None provided. Findings: No consolidation, pneumothorax, or effusion. Heart size normal. Impression: 1. No acute cardiopulmonary process. No focal pulmonary consolidation. This document has been electronically signed by: Joe Carrington MD on 07/01/2025 22:25:17
[2025-07-01 21:30] VITALS: BP 148/69; PULSE 81; RESP 16; TEMP 36.4; O2SAT 99; BMI 20.4
--- OUTSIDE RECORDS SUMMARY | 2025-07-01 22:53 | XMS_ITS ---
Author Name [facility] Organization Unknown Encounters Encounter Type Encounter Reason Primary Diagnosis Location Date Ambulatory Collaborative N [facility] 04/09/2024 Care Team Organization Name Specialty Phone Email Start Date End Da te [facility] Deanna Tomas Primary Care 04/11/2024
--- OUTSIDE RECORDS SUMMARY | 2025-07-01 22:53 | XMS_ITS | Clinical Summary ---
Author Organization [facility] Address [address] [place] [address] Care Team Providers Care Call Taker Name Role Phone Unavailable Primary Care Provider Unavailabl e Allergies Active Allergy Reactions Criticality Noted Date Comments Amoxicillin 02/17/2013 Medications ketoconazole (NIZORAL) 2 % shampoo Use on scalp 3-4 times/week. 1 Bottle 11 6 Active Additional Information Patient not taking.Reported on 03/18/2017 ALBUTEROL INHL Inhale as directed as needed. Active POLAPREZINC, ZINC CARNOSINE, ORAL Take 75 mg by mouth 2 times daily. Active ascorbate calcium (VITAMIN C ORAL) Take 2,000 mg by mouth 2 times daily. Active vitamin A 25,000 unit Take 25,000 Units by mouth daily. Active cyanocobalamin (VITAMIN B-12) 1,000 mcg tablet Take 1,000 mcg by mouth daily. Active ketoconazole (NIZORAL) 2 % cream Apply topically to affected area daily. 15 g 11 8 Active Fluocinolone-Sh ower Cap 0.01 % oil use on scalp topically nightly for 2 weeks, then use 2 to 3 times per week thereafter 118.28 mL 8 0 Active Active Problems Problem Noted Date Diagnosed Date Eczematous dermatitis 11/18/2015 Overview (11/18/2015): scalp Surgical History Surgery Date Site/Laterality Comments WISDOM TOOTH EXTRACTION Medical History Medical History Date Comments Lung disease sports induced a sthma Family History Medical History Relation Comments Prostate Cancer Maternal Grandfather Relation Status Comments Maternal Grandfather Social History Tobacco Use Types Packs/Day Years Used Date Smoking Tobacco: Never Smokeless Tobacco: Never Alcohol Use Standard Drinks/Week Comments No 0 (1 standard drink = 0.6 oz pur e alcohol) Interpersonal Safety Answer Date Record ed Physically Hurt Never 06/08/2020 Verbally Threaten Not on file 06/08/2020 Comments No Sex and Gender Information Value Date Recorded Sex Assigned at Not on file Legal Sex Female 18:09 EST Gender Identity Not on file Sexual Orientation Not on file Obstetrics History Last Filed Vital Signs Vital Sign Reading Time Taken Comments Blood Pressure 100/60 05/13/2017 1015 EDT Pulse 72 05/13/2017 0901 EDT Temperature 36 C (96.8 F) 05/13/2017 0942 EDT Respiratory Rate 15 05/13/2017 1015 EDT Oxygen Saturation 100% 05/13/2017 1015 EDT Inhaled Oxygen Concentration - - Weight 49.9 kg (110 lb) 05/13/2017 0848 EDT Height 160 cm (5' 3 ) 05/13/2017 0848 EDT Body Mass Index 19.49 05/13/2017 0848 EDT Plan of Treatment Health Maintenance Due Date Last Done Comments Hepatitis C Screen 1995 Hepatitis B Vaccine (1 of 3 - 19+ 3-dose series) 02/27 COVID-19 Vaccine ( season) 2024
--- OUTSIDE RECORDS SUMMARY | 2025-07-01 22:53 | XMS_ITS | Encounter Summary ---
Author Organization [facility] Address [address] [place] [address] Care Team Providers Care Yellow Pages Space Salesperson Name Role Phone Claudia Calderon NP Primary Care Provider Unava ilable Reason for Visit * Reason Comments Other Encounter Details Date Type Department Care Team (Late st Contact Info) Description 12/27/2016 Refill [facility] 5th [facility] [address] [place], [place] [address] Augie Ayon PA-C [address] [place] [address] [place] [phone] Other Social History Tobacco Use Types Packs/Day Years Used Date Smoking Tobacco: Never Smokeless Tobacco: Never Alcohol Use Standard Drinks/Week Comments No 0 (1 standard drink = 0.6 oz pur e alcohol) Comments No Sex and Gender Information Value Date Recorded Sex Assigned at Not on file Legal Sex Female 18:09 EST Gender Identity Not on file Sexual Orientation Not on file documented as of this encounter Functional Status * Because of a physical, mental, or emotional condition, does this person have difficulty doing errands alone such as visiting a doctor's office or shopping? Answer Date of Assessment Author No 11/18/2015 15:35 EST documented as of this encounter Mental Status * Because of a physical, mental, or emotional condition, does this person have serious difficulty concentrating, remembering, or making decisions? Answer Entry Date Author No 11/18/2015 15:35 EST documented in this encounter Ordered Prescriptions Prescription Sig Dispense Quantity Refills Last Filled Start Date End Date Fluocinolone-Showe r Cap 0.01 % oil use on scalp topically nightly for 2 weeks, then use 2 to 3 times per week thereafter 118.28 mL 4 12/27/2016 7 documented in this encounter Miscellaneous Notes * Telephone Encounter - Jesica Condon A.E. - 12/27/2016 1503 EST Medication: Fluocinolone-Shower Cap 0.01 % oil Diagnosis: [facility] derm Last Office Visit: 03/02/16 Next Office Visit: 03/11/17 Last Refill: first requested refill Last PPD: n/a Last Labs: n/a documented in this encounter Plan of Treatment Not on file documented as of this encounter Visit Diagnoses Not on filedocumented in this encounter Discontinued Medications Medication Sig Discontinue Reason Start Date End Da te Fluocinolone-Shower Cap (DERMA-SMOOTHE/FS SCALP OIL) 0.01 % oil Sig use on scalp nightly for 2 weeks, then 2-3 times/week thereafter Reorder 11/18/2015 12/27/2016 documented as of this encounter Care Teams Yellow Pages Space Salesperson Relationship Specialty Start Date End Date Claudia Calderon NP PCP - General 09/10/16 06/11/20 documented as of this encounter
[2025-07-02] VITALS: BP 128/76; PULSE 68; RESP 20; TEMP 36.4; O2SAT 100
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
[2025-07-02 01:04] VITALS: BP 128/76; PULSE 68; RESP 20; TEMP 36.4; O2SAT 100
== END 2025-07-02 01:05 | disposition home or self-care (01) ==
PROVIDERS: Emergency Provider Emergency Medicine; PCP Internal Medicine
DX: S13.4XXA Sprain of ligaments of cervical spine, initial encounter (principal); S20.213A Contusion of bilateral front wall of thorax, initial encounter; R07.89 Other chest pain; R51.9 Headache, unspecified; V43.52XA Car driver injured in collision with other type car in traffic accident, initial encounter; Y93.9 Activity, unspecified; Y92.410 Unspecified street and highway as the place of occurrence of the external cause; Y99.8 Other external cause status; Z79.899 Other long term (current) drug therapy
CPT/HCPCS: 71046; 93005; 99283; 99284

== ENCOUNTER → 2025-07-01 21:44 | Outpatient (BNV) | payer OTHER, SELFPAY | PROVIDERS: Emergency Provider Emergency Medicine; PCP Internal Medicine; Visit Provider Internal Medicine | DX: R07.9 Chest pain, unspecified (principal); V89.2XXA Person injured in unspecified motor-vehicle accident, traffic, initial encounter | CPT/HCPCS: 93010 ==